=== PATIENT | male | born 1940 | race Caucasian/White ===

== ENCOUNTER 2017-08-24 12:13 | Inpatient (IN) | payer OTHER, BC ==
--- OUTSIDE RECORDS SUMMARY | 2017-08-24 12:15 | XMS REPORT ---
:1940 [facility] [address] [place] [address] Dr. Bush. [address] [place] [id number] Care Team Providers Name Role Phone DR ALEXANDRA KOROMA Unavailable Unavailable Problems This patient has no known problems. Allergies, Adverse Reactions, Alerts This patient has no known allergies or adverse reactions. Medications This patient has no known medications. Results Test Description Test Time Test Comments Text Results Atomic Results Result Comments CARDIAC PROFILE 2017-01-19 10:03:00 Test Item Value Reference Range Comments TROPONIN I (test code=A84) 0.039 ng/mL 0.000-0.045 CKMB (test code=A49) 24.5 ng/mL <=3.6 CPK (test code=32A) 995 IU/L 39-308 CARDIAC [id number] 04:24:00 Test Item Value Reference Range Comments TROPONIN I (test code=A84) 0.058 ng/mL 0.000-0.045 CKMB (test code=A49) 29.7 ng/mL <=3.6 CPK (test code=32A) 1058 IU/L 39-308 BASIC METABOLIC [id number] 03:53:00 Test Item Value Reference Range Comments GLUCOSE (test code=06D) 109 mg/dL 75-100 SODIUM (test code=01A) 137 mmol/L 136-145 POTASSIUM (test code=01B) 3.4 mmol/L 3.6-5.1 CHLORIDE (test code=04A) 103 mmol/L 98-107 CO2 (test code=02A) 25 mmol/L 22-32 ANION GAP (test code=ANG) 12.4 mmol/L BUN (test code=05D) 15 mg/dL 7-18 CREATININE (test code=03E) 0.9 mg/dL 0.7-1.3 BUN/CREA (test code=BCR) 17 12-20 CALCIUM (test code=09D) 8.2 mg/dL 8.3-9.5 CBC (INCLUDES AUTOMATED DIFFERENTIAL)2017-01-19 03:44:00 Test Item Value Reference Range Comments WBC (test code=WBC) 5.6 10\S\3/uL 4.5-11.0 RBC (test code=RBC) 3.89 10\S\6/uL 3.80-5.80 HGB (test code=HBG) 12.1 g/dL 14.0-18.0 HCT (test code=HCT) 35.0 % 35.0-46.0 MCV (test code=MCV) 90.0 fL 80.0-94.0 MCH (test code=MCH) 31.1 pg 27.0-31.0 MCHC (test code=MCHC) 34.6 g/dL 32.0-36.0 RDW (test code=RDW) 11.9 % 11.5-14.5 PLT (test code=PLT) 174 10\S\3/uL 130-400 MPV (test code=MPV) 9.4 fL 9.4-12.4 NEUTROP # (test code=NE#) 3.3 10\S\3/uL 2.0-8.0 LYMPH # (test code=LY#) 1.2 10\S\3/uL 1.2-4.0 MONOCYTE # (test code=MO#) 0.9 10\S\3/uL 0.0-1.1 EOSINOPH # (test code=EO#) 0.1 10\S\3/uL 0.0-0.7 BASOPHIL # (test code=BA#) 0.0 10\S\3/uL 0.0-0.3 IG # (test code=IG#) 0.01 10\S\3/uL 0.00-0.06 NRBC # (test code=NRBC#) 0.00 10\S\3/uL 0.00-0.01 NEUTROPH % (test code=NE%) 58.7 % 35.0-73.0 LYMPH % (test code=LY%) 22.0 % 20.0-55.0 MONO % (test code=MO%) 16.5 % 2.5-10.0 EOSINOPH % (test code=EO%) 2.2 % 0.0-5.0 BASOPHIL % (test code=BA%) 0.4 % 0.0-2.0 IG % (test code=IG%) 0.2 % 0.0-0.8 NRBC% (test code=NRBC%) 0.0 % 0.0-0.2 MANDIFF (test code=MDIFF) NO NO RBC MORPH (test code=RBCMOR) NORMAL CT CERVICAL SPINE W/O [id number] 20:41:24Location:: H1Iqqiztf: Neck painComparison: NoneTechnique: Multiplanar axial, sagittal, and coronal CT images of the cervicalspine were obtained without the use of intravenous contrast in bone and softtissue window settings.Findings:Osseous structures show osteopenia of the regional skeleton without evidence offracture, dislocation or prevertebral soft tissue swelling.Marked disc space narrowing is present at C6-7 with large posterior osteophytespresent.Mild degenerative changes consisting of osteophytes anterolaterally andposteriorly from C3 through C7 are present.Surrounding soft tissues are unremarkable. Scattered atheroscleroticcalcification is present.There is multilevel spinal stenosis secondary to a combination of posteriorspondylitic changes with bilateral neural foramen encroachment secondary tomoderate bilateral facet hypertrophy from C3 to 4 through C7-T1 greatest atC5-C6, C6-7.If radiculopathy is present correlation with MRI may be of further benefit.Impression:1. No evidence of acute osseous or soft tissue abnormality.2. Diffuse degenerative disc disease with associated degenerative changes andmultilevel spinal stenosis and bilateral neural foramen encroachment whichfurther evaluation is recommended.CARDIAC [id number] 20:40:00 Test Item Value Reference Range Comments TROPONIN I (test code=A84) 0.081 ng/mL 0.000-0.045 CKMB (test code=A49) 44.5 ng/mL <=3.6 CPK (test code=32A) 1078 IU/L 39-308 COMPREHENSIVE METABOLIC [id number] 20:35:00 Test Item Value Reference Range Comments GLUCOSE (test code=06D) 103 mg/dL 75-100 SODIUM (test code=01A) 135 mmol/L 136-145 POTASSIUM (test code=01B) 3.4 mmol/L 3.6-5.1 CHLORIDE (test code=04A) 102 mmol/L 98-107 CO2 (test code=02A) 23 mmol/L 22-32 ANION GAP (test code=ANG) 13.4 mmol/L BUN (test code=05D) 17 mg/dL 7-18 CREATININE (test code=03E) 0.9 mg/dL 0.7-1.3 BUN/CREA (test code=BCR) 18 12-20 CALCIUM (test code=09D) 8.9 mg/dL 8.3-9.5 BILI TOTAL (test code=11A) 1.0 mg/dL 0.2-1.0 PROTEIN (test code=07D) 7.0 g/dL 6.4-8.2 ALBUMIN (test code=08D) 3.9 g/dL 3.5-4.8 GLOBULIN (test code=GLB) 3.1 g/dL 1.5-3.8 ALB/GLOB (test code=AGRR) 1.3 1.0-2.6 ALK PHOS (test code=35A) 64 IU/L 42-121 AST (test code=30A) 42 IU/L <=42 ALT (test code=31A) 8 IU/L <=78 CT ABDOMEN AND PELVIS W/O [id number] 20:31:42LOCATION CODE: A1.HISTORY : Low back and right flank painCOMPARISON: NoneTECHNIQUE: Serial axial scans of the abdomen and pelvis were obtained fromabove the diaphragm through the inferior pubic rami without the use of oral orintravenous contrast .FINDINGS: The cardiac silhouette and visualized portions of the pulmonaryparenchyma are normal.Extensive coronary artery atherosclerotic calcification is present.Visualized portions of the liver, spleen, pancreas, and adrenals are normal insize, shape, and electron density without evidence of focal mass lesion.Patient is status post cholecystectomy. No evidence of biliary ductaldilatation is noted.The left kidney shows a large lobulated cyst in the upper pole which appears toarise from the pelvis is difficult to evaluate if this is a duplex collectingsystem with possible obstruction.No evidence of nephrocalcinosis, hydronephrosis or perinephric inflammatorychanges are present.No evidence of retroperitoneal adenopathy or free intra-abdominal fluid ispresent.Degenerative changes of the thoracolumbar spine with extensive atheroscleroticcalcification of anondilated aorta is present.Moderate stool in the colon is present in keeping with constipation.Visualized loops of large and small bowel appear within normal limits withoutevidence of bowel wall thickening.Visualized portions of the pelvis show osseous structures and bowel gas patternare unremarkable.Visualized portions of the bladder and rectum are unremarkable.The prostate is diffusely enlarged.Noevidence of pelvic mass lesion , adenopathy or free fluid is present..IMPRESSION:1. Extensive coronary artery atherosclerotic calcification.2. Large left upper pole renal cyst arising from the renal pelvis for whichfurther evaluation is recommended.3. Status post cholecystectomy.4. Degenerative changesof the thoracolumbar spine with atheroscleroticcalcification of a nondilated aorta. 5. Enlarged prostate.6. Constipation..CT CHEST W/O [id number] 20:25:41LOCATION CODE: A1.HISTORY : chest painCOMPARISON: NoneTECHNIQUE: Serial axial scans of the chest wereobtained from above theclavicles through to the upper pole of the kidneys without the administrationof intravenous contrast in mediastinal and lung window settings.FINDINGS: Cardiac silhouette is within normal limits without evidence ofpericardial effusion.Diffuse coronary artery atherosclerotic calcification is present involving theright and left coronary arteries greatest involving the LAD.Visualized portions of the thoracic aorta are normal without evidence ofaneurysmal dilatation or dissection.No evidence of significant mediastinal or hilar adenopathy is present.Visualized portions of the pulmonary parenchyma show mild bilateralperibronchial cuffing.No definite evidence of infiltrate, pulmonary nodules, pleural effusion orthickening, bullous disease, or bronchiectasis.Mild degenerative changes of the thoracolumbar spine are present.Atherosclerotic calcification of a nondilated aorta is present.The patient is status post cholecystectomy. Large left upper pole left renalcyst is present. No significant axillary adenopathy is present.Visualized portions of the liver, spleen, pancreas, kidneys, and adrenals areunremarkable.IMPRESSION: Extensive coronary artery atherosclerotic calcification forwhich furtherevaluation with stress test or angiography may be of further benefit.2. No other acute cardiopulmonary disease.3. Status post cholecystectomy. 4. Degenerative changes of the thoracolumbar spine with atheroscleroticcalcification of a nondilated aorta.CT HEAD W/O [id number] 20:17:03LOCATION CODE: A1.HISTORY: HeadacheCOMPARISON: NoneTECHNIQUE: Serial axial scans of the brain wereobtained without the use ofintravenous contrast in brain and bone window settings.FINDINGS: The ventricles and subarachnoid spaces are prominent in keeping withage-related atrophy. No evidence of shiftof the midline or mass effect ispresent.There is no evidence of subarachnoid hemorrhage, intracerebral hematoma orextraaxial fluid collections present.Visualized portions of the brain parenchyma show decreased attenuation inperiventricular white matter in keeping with chronic white matter ischemicchange.No other areas of abnormal attenuation are present to suggest mass lesion,acute CVA, or contusion.Osseous structures, surrounding soft tissues , sinuses, and mastoids areunremarkable.IMPRESSION:1. Age-related atrophy.2. Chronic white matter ischemic changes.3. No evidence of acute intracranial pathology.CBC (INCLUDES AUTOMATED DIFFERENTIAL)2017-01-18 20:09:00 Test Item Value Reference Range Comments WBC (test code=WBC) 8.4 10\S\3/uL 4.5-11.0 RBC (test code=RBC) 4.10 10\S\6/uL 3.80-5.80 HGB (test code=HBG) 12.9 g/dL 14.0-18.0 HCT (test code=HCT) 36.5 % 35.0-46.0 MCV (test code=MCV) 89.0 fL 80.0-94.0 MCH (test code=MCH) 31.5 pg 27.0-31.0 MCHC (test code=MCHC) 35.3 g/dL 32.0-36.0 RDW (test code=RDW) 11.9 % 11.5-14.5 PLT (test code=PLT) 195 10\S\3/uL 130-400 MPV (test code=MPV) 8.8 fL 9.4-12.4 NEUTROP # (test code=NE#) 5.7 10\S\3/uL 2.0-8.0 LYMPH # (test code=LY#) 1.6 10\S\3/uL 1.2-4.0 MONOCYTE # (test code=MO#) 1.0 10\S\3/uL 0.0-1.1 EOSINOPH # (test code=EO#) 0.0 10\S\3/uL 0.0-0.7 BASOPHIL # (test code=BA#) 0.0 10\S\3/uL 0.0-0.3 IG # (test code=IG#) 0.02 10\S\3/uL 0.00-0.06 NRBC # (test code=NRBC#) 0.00 10\S\3/uL 0.00-0.01 NEUTROPH % (test code=NE%) 67.3 % 35.0-73.0 LYMPH % (test code=LY%) 19.5 % 20.0-55.0 MONO % (test code=MO%) 12.1 % 2.5-10.0 EOSINOPH % (test code=EO%) 0.4 % 0.0-5.0 BASOPHIL % (test code=BA%) 0.5 % 0.0-2.0 IG % (test code=IG%) 0.2 % 0.0-0.8 NRBC% (test code=NRBC%) 0.0 % 0.0-0.2 MANDIFF (test code=MDIFF) NO NO
[2017-08-24] MEDS ORDERED: NA CHLORIDE 0.9% 500 ML ONE (13:10)
--- NOTE | 2017-08-24 13:16 | RAD REPORT ---
EXAM DESCRIPTION: RAD - Chest Single View - 08/24/2017 1:10 pm CLINICAL HISTORY: Syncope, dehydration, hypotension COMPARISON: June 2011 TECHNIQUE: AP portable chest image was obtained 1306 hours . FINDINGS: Lung volumes are low. This accentuates baseline interstitial pattern. Minimal interstitial edema or infiltrate could be masked in this setting. No focal consolidation. Significant failure or volume overload are not suspected. Trachea is midline. The upper abdominal bowel gas pattern is nonsp ecific. Heart and vasculature are normal. No measurable pleural effusion and no pneumothorax. No leta s bony abnormality seen. No acute aortic findings suspected. IMPRESSION: Shallow inspiration accentuates interstitial markings. This could mask early interstitia l edema or infiltrate. No peripheral mass or consolidation.
[2017-08-24 13:25] LABS: Absolute Monocytes 1.2 K/uL (0.1-1.3); Absolute Neutrophil 6.8 K/uL (1.8-8.0); Basophils % 0.3 % (0-1.3); Eosinophils % 1.6 % (0-4.4); Hematocrit 36.8 % (39.6-49.0); Lymphocytes % 10.7 % (15.3-44.8); MCH 31.1 pg (27.0-35.0); MCV 91.4 fL (80-100); MPV 7.6 fL (7.6-11.3); Monocytes % 13.4 % (3.3-12.3); RBC Red Blood Cell Count 4.03 M/uL (4.33-5.43)
[2017-08-24 13:29] LABS: Potassium 4.2 mEq/L (3.6-5.0)
[2017-08-24 13:40] LABS: Bilirubin Direct 0.2 mg/dL (0-0.2); Bilirubin Total 1.5 mg/dL (0.3-1.2); Protein, Total 6.6 g/dL (6.0-8.3)
--- NOTE | 2017-08-24 13:42 | RAD REPORT ---
EXAM DESCRIPTION: CT - CTHCSPWOC - 08/24/2017 1:23 pm CLINICAL HISTORY: Syncope, head and neck injury COMPARISON: None. TECHNIQUE: Axial 5 mm thick images of the head were obtained. Axial 2 mm thick images of the cervic al spine were obtained with sagittal and coronal reconstruction images generated and reviewed. All CT scans are performed using dose optimization technique as appropriate and may include automated exposure control or mA/KV adjustment according to patient size. FINDINGS: No intracranial hemorrhage, mass, edema or acute intracranial finding. No acute cortical based infarc tion. Moderate atrophy and chronic ischemic changes are present. Arterial and physiologic calcificati ons present. Ventricular size is in proportion to volume loss. No extra-axial fluid collections. Mast oid air cells and paranasal sinuses are clear. No globe or orbit abnormality seen. Cervical body height and alignment are normal. Left lateral tilt of the cervical spine is believed to be a positioning artifact. Disc space narrowing is present at C3-4 and C6-7. No fracture or acute alonzo ny abnormality. Mild right bony foraminal encroachment at C3-4. Mild bilateral foraminal encroachment changes are present at C5-6. Prominent posterior endplate spurring at C6-7 causes central spinal ed nosis to 9 mm. There is also mild left foraminal encroachment. No paraspinal mass or hematoma. IMPRESSION: Moderate atrophy and chronic ischemic change with no acute intracranial finding. Cervical spine degenerative changes are present. There is central spinal stenosis at C6-7 due to prom inent posterior endplate spurring. Multilevel foraminal stenosis changes are present mild in degree. Central canal detail is inherently limited.
[2017-08-24 13:43] LABS: Protime INR 1.19
--- NOTE | 2017-08-24 13:54 | EDPHYS ---
Physician Documentation [facility] Name: Kevin Sandhu Age: 77 yrs Sex: Male : 1940 Arrival Date: 08/24/2017 Time: 12:17 Bed 5 Private MD: Willy Andrade R ED Physician Yunier Espinoza HPI: 08/24 13:39 This 77 yrs old Male presents to ER via Ambulatory with complaints of sha Dehydration. 13:39 weak, cant walk. The patient presents with decreased mental status, trouble sha concentrating. Onset: The symptoms/episode began/occurred 2 day(s) ago. Possible causes: unknown. Associated signs and symptoms: Pertinent positives: confusion, dizziness, gait abnormality, lightheadedness. Current symptoms: In the emergency department the patient's symptoms are unchanged from the initial presentation. Patient's baseline: Neuro: alert and fully oriented. Severity of symptoms: At their worst the symptoms were mild in the emergency department the symptoms are unchanged. Historical: - Allergies: 12:23 No Known Allergies; hj - Home Meds: 12:23 lisinopril 20 mg Oral tab 1 tab once daily [Active]; finasteride 5 mg oral tab 1 tab hj once daily [Active]; memantine 10 mg oral tab 1 tab 2 times per day [Active]; Nuplazid 17 mg oral tab 2 tabs once daily [Active]; tamsulosin 0.4 mg oral cp24 1 cap once daily [Active]; omeprazole 20 mg Oral cpDR 1 cap once daily [Active]; metoprolol tartrate 50 mg Oral tab 1 tab 2 times per day [Active]; carbidopa-levodopa 25-100 mg Oral tab 1 tab 3 times per day [Active]; Zyrtec 10 mg Oral tab 1 tab once daily [Active]; aspirin 81 mg Oral TbEC 1 tab once daily [Active]; - PMHx: 12:23 Parkinsons; prostate cancer; GERD; hj - PSHx: 12:23 colon; hj - Immunization history:: Adult Immunizations up to date. - Social history:: Smoking status: Patient/guardian denies using tobacco. - Family history:: not pertinent. ROS: 13:39 Constitutional: Negative for fever, chills, and weight loss, Eyes: Negative for injury, sha pain, redness, and discharge, ENT: Negative for injury, pain, and discharge, Neck: Negative for injury, pain, and swelling, Cardiovascular: Negative for chest pain, palpitations, and edema, Respiratory: Negative for shortness of breath, cough, wheezing, and pleuritic chest pain, Abdomen/GI: Negative for abdominal pain, nausea, vomiting, diarrhea, and constipation, Back: Negative for injury and pain, : Negative for injury, bleeding, discharge, and swelling, MS/Extremity: Negative for injury and deformity, Skin: Negative for injury, rash, and discoloration, Psych: Negative for depression, anxiety, suicide ideation, homicidal ideation, and hallucinations, Allergy/Immunology: Negative for hives, rash, and allergies, Endocrine: Negative for neck swelling, polydipsia, polyuria, polyphagia, and marked weight changes, Hematologic/Lymphatic: Negative for swollen nodes, abnormal bleeding, and unusual bruising. 13:39 Neuro: Positive for altered mental status, weakness. Exam: 13:39 Constitutional: This is a well developed, well nourished patient who is awake, alert, sha and in no acute distress. Head/Face: Normocephalic, atraumatic. Eyes: Pupils equal round and reactive to light, extra-ocular motions intact. Lids and lashes normal. Conjunctiva and sclera are non-icteric and not injected. Cornea within normal limits. Periorbital areas with no swelling, redness, or edema. ENT: Nares patent. No nasal discharge, no septal abnormalities noted. Tympanic membranes are normal and external auditory canals are clear. Oropharynx with no redness, swelling, or masses, exudates, or evidence of obstruction, uvula midline. Mucous membranes moist. Neck: Trachea midline, no thyromegaly or masses palpated, and no cervical lymphadenopathy. Supple, full range of motion without nuchal rigidity, or vertebral point tenderness. No Meningismus. Chest/axilla: Normal chest wall appearance and motion. Nontender with no deformity. No lesions are appreciated. Cardiovascular: Regular rate and rhythm with a normal S1 and S2. No gallops, murmurs, or rubs. Normal PMI, no JVD. No pulse deficits. Respiratory: Lungs have equal breath sounds bilaterally, clear to auscultation and percussion. No rales, rhonchi or wheezes noted. No increased work of breathing, no retractions or nasal flaring. Abdomen/GI: Soft, non-tender, with normal bowel sounds. No distension or tympany. No guarding or rebound. No evidence of tenderness throughout. Back: No spinal tenderness. No costovertebral tenderness. Full range of motion. Male : Normal genitalia with no discharge or lesions. Skin: Warm, dry with normal turgor. Normal color with no rashes, no lesions, and no evidence of cellulitis. Psych: Awake, alert, with orientation to person, place and time. Behavior, mood, and affect are within normal limits. 13:39 Musculoskeletal/extremity: Extremities: decreased ROM. Vital Signs: 12:24 Weight 68.49 kg; Height 5 ft. 10 in. (177.80 cm); hj 12:35 BP 120 / 76; Pulse 58; Resp 16; Pulse Ox 98% on R/A; iw 13:05 BP 112 / 65; Pulse 61; Resp 15; Pulse Ox 98% on R/A; ae1 13:05 Temp 98.5(O); ae1 13:36 BP 126 / 74; Pulse 64; Resp 18; Pulse Ox 100% ; ag 14:19 BP 142 / 71; Pulse 60; Resp 16; Pulse Ox 100% on R/A; ae1 12:24 Body Mass Index 21.67 (68.49 kg, 177.80 cm) hj MDM: 13:25 Patient medically screened. [facility] 13:39 Data reviewed: vital signs, nurses notes, lab test result(s), EKG, radiologic studies, [facility] CT scan, plain films. 08/24 12:33 Order name: Basic Metabolic Panel [facility] 08/24 12:33 Order name: BNP [facility] 08/24 12:33 Order name: CBC with Diff [facility] 08/24 12:33 Order name: CPK [facility] 08/24 12:33 Order name: LFT's [facility] 08/24 12:33 Order name: Magnesium [facility] 08/24 12:33 Order name: PT-INR [facility] 08/24 12:33 Order name: Ptt, Activated [facility] 08/24 12:33 Order name: Troponin (emerg Dept Use Only) [facility] 08/24 13:28 Order name: CBC with Automated Diff; Complete Time: 13:42 EDMS 08/24 13:30 Order name: Basic Metabolic Panel; Complete Time: 14:51 EDMS 08/24 13:36 Order name: Troponin (Emerg Dept Use Only); Complete Time: 13:42 EDMS 08/24 13:38 Order name: Urine Culture [facility] 08/24 13:39 Order name: Blood Culture Adult (2) [facility] 08/24 12:33 Order name: XRAY Chest (1 view) [facility] 08/24 12:33 Order name: EKG; Complete Time: 12:35 [facility] 08/24 12:34 Order name: CT Head C Spine [facility] 08/24 13:17 Order name: RAD; Complete Time: 13:42 EDMS 08/24 13:38 Order name: Pelvis XRAY [facility] 08/24 13:40 Order name: Liver (Hepatic) Function; Complete Time: 14:51 EDNV 08/24 13:40 Order name: Magnesium; Complete Time: 14:51 EDNV 08/24 13:42 Order name: CT; Complete Time: 14:02 EDNV 08/24 13:44 Order name: Protime (+INR); Complete Time: 14:02 EDNV 08/24 13:44 Order name: PTT, Activated Partial Thromb; Complete Time: 14:02 EDNV 08/24 13:59 Order name: RAD; Complete Time: 14:02 EDNV 08/24 14:22 Order name: Creatine Phosphokinase; Complete Time: 14:51 EDNV 08/24 14:45 Order name: BNP B-Type Natriuretic Peptide; Complete Time: 14:51 EDNV 08/24 14:50 Order name: Echo w/ Doppler [facility] 08/24 12:33 Order name: Cardiac monitoring; Complete Time: 13:04 [facility] 08/24 12:33 Order name: EKG - Nurse/Tech; Complete Time: 13:04 [facility] 08/24 12:33 Order name: IV Saline Lock; Complete Time: 13:04 [facility] 08/24 12:33 Order name: Labs collected and sent; Complete Time: 13:04 [facility] 08/24 12:33 Order name: O2 Per Protocol; Complete Time: 13:05 [facility] 08/24 12:33 Order name: O2 Sat Monitoring; Complete Time: 13:05 [facility] 08/24 12:34 Order name: Urine Dipstick-Ancillary (obtain specimen); Complete Time: 14:36 kdr Administered Medications: 13:05 Drug: NS 0.9% 500 ml Route: IV; Rate: bolus; Site: right antecubital; ae1 14:20 Follow up: IV Status: Completed infusion ae1 14:35 Drug: Rocephin - (cefTRIAXone) 1 grams Route: IVPB; Infused Over: 30 mins; Site: right ae1 antecubital; 14:44 Follow up: IV Status: Completed infusion ae1 Disposition: 08/24/17 13:53 Hospitalization ordered by Willy Andrade for Inpatient Admission. Preliminary diagnosis are Weakness, Parkinson's disease, Volume depletion, Fall due to bumping against object, Hypo-osmolality and hyponatremia, Rhabdomyolysis. - Bed requested for Telemetry/MedSurg (Inpatient). - Status is Inpatient Admission. ae1 - Condition is Fair. - Problem is new. - Symptoms have improved. UTI on Admission? No Signatures: Dispatcher [employer] EDYunier Rothman MD MD cha Rittger, Kevin, MD MD kdr Solis, Maria ms Joaquin, Henry, RN RN Zachery Jraa RN RN ae1
--- NOTE | 2017-08-24 13:54 | ER ---
Nurse's Notes [facility] Name: Kevin Sandhu Age: 77 yrs Sex: Male : 1940 Arrival Date: 08/24/2017 Time: 12:17 Bed 5 Private MD: Willy Andrade R Diagnosis: Weakness;Parkinson's disease;Volume depletion;Fall due to bumping against object;Hypo-osmolality and hyponatremia;Rhabdomyolysis Presentation: 08/24 12:19 Presenting complaint: Child states: went to Dr. Roger for check up, for Parkinson's hj follow up; was sent here for dehydration, low BP, and unable to stand up;. Transition of care: patient was received from another setting of care (ambulatory primary care physician practice), Dr. Roger;. Onset of symptoms was August 24, 2017. Care prior to arrival: None. 12:19 Method Of Arrival: Ambulatory hj 12:19 Acuity: ERICA 3 hj Triage Assessment: 12:23 General: Appears in no apparent distress. uncomfortable, Behavior is calm, cooperative, hj appropriate for age. Historical: - Allergies: 12:23 No Known Allergies; hj - Home Meds: 12:23 lisinopril 20 mg Oral tab 1 tab once daily [Active]; finasteride 5 mg oral tab 1 tab hj once daily [Active]; memantine 10 mg oral tab 1 tab 2 times per day [Active]; Nuplazid 17 mg oral tab 2 tabs once daily [Active]; tamsulosin 0.4 mg oral cp24 1 cap once daily [Active]; omeprazole 20 mg Oral cpDR 1 cap once daily [Active]; metoprolol tartrate 50 mg Oral tab 1 tab 2 times per day [Active]; carbidopa-levodopa 25-100 mg Oral tab 1 tab 3 times per day [Active]; Zyrtec 10 mg Oral tab 1 tab once daily [Active]; aspirin 81 mg Oral TbEC 1 tab once daily [Active]; - PMHx: 12:23 Parkinsons; prostate cancer; GERD; hj - PSHx: 12:23 colon; hj - Immunization history:: Adult Immunizations up to date. - Social history:: Smoking status: Patient/guardian denies using tobacco. - Family history:: not pertinent. Screenin:14 Abuse screen: Denies threats or abuse. Nutritional screening: No deficits noted. ae1 Tuberculosis screening: No symptoms or risk factors identified. Fall Risk. Assessment: 13:14 General: Appears slender, Behavior is cooperative, quiet, Patient appears drowsy, ae1 awakens to loud verbal stimuli. . Pain: Denies pain. Neuro: Level of Consciousness is obeys commands, lethargic, Oriented to person. Cardiovascular: Heart tones S1 S2 present Patient's skin is warm and dry. Rhythm is sinus bradycardia. Respiratory: Airway is patent Respiratory effort is even, unlabored, Respiratory pattern is regular, symmetrical, Breath sounds are diminished bilaterally. GI: No signs and/or symptoms were reported involving the gastrointestinal system. Abdomen is flat, non-distended. : No signs and/or symptoms were reported regarding the genitourinary system. EENT: wears glasses. . Derm: Skin is pale. Musculoskeletal: Reports generalized weakness that increased over the past week. 14:30 Reassessment: Patient appears in no apparent distress at this time. No changes from ae1 previously documented assessment. 2nd set of blood cultures sent to lab. 14:36 Reassessment: Report called rj Miller nurse. Registration notified, that report ae1 has been called. Vital Signs: 12:24 Weight 68.49 kg; Height 5 ft. 10 in. (177.80 cm); hj 12:35 BP 120 / 76; Pulse 58; Resp 16; Pulse Ox 98% on R/A; iw 13:05 BP 112 / 65; Pulse 61; Resp 15; Pulse Ox 98% on R/A; ae1 13:05 Temp 98.5(O); ae1 13:36 BP 126 / 74; Pulse 64; Resp 18; Pulse Ox 100% ; ag 14:19 BP 142 / 71; Pulse 60; Resp 16; Pulse Ox 100% on R/A; ae1 12:24 Body Mass Index 21.67 (68.49 kg, 177.80 cm) ED Course: 12:17 Patient arrived in ED. mr 12:18 Willy Andrade MD is Private Physician. mr 12:21 Triage completed. hj 12:21 Ran Crawford MD is Attending Physician. kdr 12:24 Arm band placed on left wrist. hj 12:50 Zachery Jara RN is Primary Nurse. ae1 13:11 Placed in gown. Bed in low position. Call light in reach. Side rails up X2. Adult w/ ae1 patient. air sampling and monitoring on. Pulse ox on. NIBP on. 13:12 Inserted saline lock: 20 gauge in right antecubital area, using aseptic technique. ae1 Blood collected. 13:25 Attending Physician role handed off by Ran Crawford MD cha 13:25 Yunier Espinoza MD is Attending Physician. [facility] 13:43 Willy Andrade MD is Hospitalizing Provider. [facility] 13:50 X-ray completed. Portable x-ray completed in exam room. Patient tolerated procedure sw well. 14:17 Straight cath inserted, using sterile technique, 16 Fr. Specimen obtained. Returned ae1 shaina urine. Patient tolerated well. By CRISTOBAL Ji TECH. 14:44 No provider procedures requiring assistance completed. Patient admitted, IV remains in ae1 place. Administered Medications: 13:05 Drug: NS 0.9% 500 ml Route: IV; Rate: bolus; Site: right antecubital; ae1 14:20 Follow up: IV Status: Completed infusion ae1 14:35 Drug: Rocephin - (cefTRIAXone) 1 grams Route: IVPB; Infused Over: 30 mins; Site: right ae1 antecubital; 14:44 Follow up: IV Status: Completed infusion ae1 Outcome: 13:53 Decision to Hospitalize by Provider. [facility] 14:44 Admitted to Med/surg accompanied by tech, family with patient, via stretcher, room 215, ae1 with chart, Report called to Angela receiving nurse. 14:44 Condition: stable 14:44 Discharge instructions given to family, Instructed on the need for admit, Demonstrated understanding of instructions. 14:56 Patient left the ED. ae1 Signatures: Yunier Espinoza MD MD cha Rittger, Kevin, MD MD kdr Rivera, Maria mr Williams, Irene, RN Margy Vidal Shannon sw Joaquin, Henry, RN RN hj Elliott, Andrea, RN RN ae1
[2017-08-24] MEDS ORDERED: ACETAMINOPHEN 500 MG TAB PO PRN (13:58)
[2017-08-24] MEDS ORDERED: ONDANSETRON 4 MG/2 ML VIAL IV PRN (13:58)
--- NOTE | 2017-08-24 13:59 | RAD REPORT ---
EXAM DESCRIPTION: RAD - Pelvis - 08/24/2017 1:53 pm CLINICAL HISTORY: Syncope, fall, dehydration, hypotension COMPARISON: None. TECHNIQUE: AP imaging of the pelvis was obtained. FINDINGS: No fracture or dislocation of either proximal femur. No fracture of the bony pelvis seen. Lower lumbar degenerative changes are present. Pubic symphysis and SI joint degenerative changes mini mal. IMPRESSION: Pelvis exam shows no fracture or other significant finding.
[2017-08-24] MEDS ORDERED: LIDOCAINE VISCOUS 2% SOLN 15 ML UDC ONE (14:28)
[2017-08-24] MEDS ORDERED: CEFTRIAXONE/SWI 1gm 1 GM/10 ML SYR ONE (14:49)
[2017-08-24 15:15] VITALS: BMI 21.8
[2017-08-24] MEDS: NA CHLORIDE 0.9% 1,000 ML IV SCH (15:23)
[2017-08-24] MEDS ORDERED: PNEUMOCOCCAL VACCINE 0.5 ML IMVAC ONE (16:00)
--- NOTE | 2017-08-24 16:48 | ECHO ---
HEIGHT: 5 ft 10 in WEIGHT: 152 lb 0 oz DATE OF STUDY: 08/24/[address]: Yunier Espinoza MD 2-DIMENSIONAL: YES M.MODE: YES DOPPLER: YES COLOR FLOW: YES TDS: YES PORTABLE: NO DEFINITY: NO BUBBLE STUDY: NO DIAGNOSIS: WEAK, SYNCOPE CARDIAC HISTORY: CATHERIZATION: NO SURGERY: NO PROSTHETIC VALVE: NO PACEMAKER: NO MEASUREMENTS (cm) DIASTOLIC (NORMALS) SYSTOLIC (NORMALS) IVSd (0.6-1.2) LA Diam (1.9-4.0) LVEF 60-69% LVIDd (3.5-5.7) LVIDs (2.0-3.5) %FS % LVPWd (0.6-1.2) Ao Diam 2.4 (2.0-3.7) 2 DIMENSIONAL ASSESSMENT: RIGHT ATRIUM: NORMAL LEFT ATRIUM: NORMAL RIGHT VENTRICLE: NORMAL LEFT VENTRICLE: NORMAL TRICUSPID VALVE: NORMAL MITRAL VALVE: NORMAL PULMONIC VALVE: NORMAL AORTIC VALVE: NORMAL PERICARDIAL EFFUSION: NONE AORTIC ROOT: NORMAL LEFT VENTRICULAR WALL MOTION: NORMAL DOPPLER/COLOR FLOW: NORMAL COMMENTS: NORMAL 2D ECHOCARDIOGRAM WITH DOPPLER. TECHNOLOGIST: Bill SMALLWOOD
--- NOTE | 2017-08-24 16:48 | EKG ---
Test Date: 2017-08-24 Test Time: 12:53:54 Aircraft Air Conditioning Mechanic: COLTON MEASUREMENT RESULTS: Intervals: Rate: 57 [place]: 132 QRSD: 80 QT: 420 QTc: 408 [place]: P: -6 [place]: 132 QRS: 0 T: -10 INTERPRETIVE STATEMENTS: Sinus bradycardia Otherwise normal ECG Compared to ECG 06/06/2011 03:33:54 Sinus rhythm no longer present ST (T wave) deviation no longer present Electronically Signed On 08-24-17 16:48:14 CDT by John Hardy
[2017-08-24] MEDS: MEMANTINE HCL 10 MG TABLET PO SCH (20:30)
[2017-08-24] MEDS: TAMSULOSIN 0.4 MG SR CAP PO SCH (20:30)
[2017-08-24] MEDS: METOPROLOL TAR 50 MG TAB PO SCH (20:30)
[2017-08-24] MEDS: PIMAVANSERIN TARTRATE 17 MG PO SCH (20:31)
[2017-08-24] MEDS: FINASTERIDE 5 MG TAB PO SCH (20:31)
[2017-08-25] MEDS: NA CHLORIDE 0.9% 1,000 ML IV SCH ×3 (02:40→20:40)
[2017-08-25 05:27] LABS: Absolute Lymphocytes (CBC) 1.1 K/uL (0.7-4.9); Absolute Monocytes 0.9 K/uL (0.1-1.3); Absolute Neutrophil 4.5 K/uL (1.8-8.0); Basophils % 0.4 % (0-1.3); Eosinophils % 4.6 % (0-4.4); Hematocrit 35.6 % (39.6-49.0); Lymphocytes % 16.3 % (15.3-44.8); MCH 31.1 pg (27.0-35.0); MPV 7.5 fL (7.6-11.3); Monocytes % 13.5 % (3.3-12.3); RBC Red Blood Cell Count 3.91 M/uL (4.33-5.43)
[2017-08-25 05:46] LABS: Potassium 4.7 mEq/L (3.6-5.0)
[2017-08-25] MEDS: PANTOPRAZOLE 40MG TABLET PO SCH (06:26)
--- NOTE | 2017-08-25 07:55 | HP ---
Date of Admission: 08/24/2017 Chief Complaint: Hyponatremia, dehydration. History Of Present Illness: A 77-year-old male who is known to have severe Parkinson disease who als o taken to Dr. Roger's office. There, he was found to have profound weakness. The patient was se nt to ER for evaluation. His sodium was 128. The patient is admitted with a diagnosis of hyponatrem ia, dehydration. The patient cannot give any meaningful history as he looks slightly confused. Ther e is no history of seizures. Past Medical History: Positive for hypertension, history of prostate cancer, Alzheimer disease, Park inson disease. Family History: Noncontributory. Personal History: Nonsmoker. Home Medications: Lisinopril, Proscar, memantine, Flomax, omeprazole, carbidopa/levodopa. Review of Systems: There is no history of chest pain or shortness of breath. Physical Examination: General: Revealed a 77-year-old male, slightly confused. There was no evidence of head injury. Neck: Supple. JVD negative. Chest: Clear. Heart: Regular. Abdomen: Soft. Extremities: No edema. Neurologic: Evidence of Parkinson's tremors noted. Laboratory Data: CBC normal. Chem profile: Sodium 128, BUN and creatinine normal. CPK 5706. Assessment: 1.Hyponatremia. 2.Probable poor eating causing volume depletion. 3.Elevation of CPK. 4.Parkinson disease. 5.Prostate cancer. 6.Hypertension. Plan: The patient received IV fluids overnight. His sodium is up to 134. Pending neurological cons ultation. The patient will be continued on the same management. CARINA/LANCE Voice ID: [id number]
[2017-08-25] MEDS: PIMAVANSERIN TARTRATE 17 MG PO SCH ×2 (09:00→20:40)
[2017-08-25] MEDS: ASPIRIN EC 81 MG TAB PO SCH (09:00)
[2017-08-25] MEDS: CETIRIZINE HCL 5 MG TABLET PO SCH (09:11)
[2017-08-25] MEDS: TAMSULOSIN 0.4 MG SR CAP PO SCH ×2 (09:11→20:38)
[2017-08-25] MEDS: METOPROLOL TAR 50 MG TAB PO SCH ×2 (09:11→20:39)
[2017-08-25] MEDS: MEMANTINE HCL 10 MG TABLET PO SCH ×2 (09:11→20:38)
[2017-08-25] MEDS: ASPIRIN 81 MG CHEWABLE TABLET PO SCH (09:11)
[2017-08-25] MEDS: LISINOPRIL 20 MG TAB PO SCH (13:06)
[2017-08-25] MEDS: CARBIDOPA/LEVODOPA 25/100 TAB PO SCH (20:39)
[2017-08-25] MEDS: FINASTERIDE 5 MG TAB PO SCH (20:39)
--- NOTE | 2017-08-25 23:07 | PN ---
Subjective: He is doing well with his physical recovery, actually he is able to rest in bed comforta silvia. He is more interactive, answers appropriately. Moves arms and legs equally well, although he c ontinues to be somewhat stiff. I spoke with his son, who has been giving him his Parkinson's medicat ions as actually prescribed 3 times daily as Sinemet 25/100. The patient himself still needs a signi ficant assistance to transfer to stand and to get towards the bathroom and mobilize. All of his work up has been negative for any injury to the brain or cervical spine. No bleeding. No ischemic or hem orrhagic stroke. His echocardiogram is normal and pelvic x-ray again no fractures and chest show no significant abnormalities along with electrocardiogram only showing some mild bradycardia. He has no new complaints. Objective: Vital Signs: Blood pressure 160/93, pulse 60, respiratory rate 18, temperature 98.5, ox saturation 96% on room air, weight 152 pounds, height 5 feet 10 inches. Neurologic: Mr. Sandhu is resting well. He has indicated he has no focal deficits. He answers appropriately to all questions. Moves arms and legs equally well although with increased tone and so me cogwheeling noted in the upper and lower extremities. He has brisk reflexes upper and lower extre mities. Laboratory Studies: White blood cell count 6.9, hemoglobin 12.2, hematocrit 35.6, platelets 196. IN R 1.19. Chemistries show improved sodium 134, potassium 4.7, chloride 103, carbon dioxide 27, BUN 30 , creatinine 0.89. There is a pending creatine kinase repeat. Assessment: Mr. Sandhu is a 77-year-old patient with Parkinson disease, who is admitted with deh ydration, increased stiffness and some altered mental status which has resolved to baseline. Plan: 1.Continue with Sinemet 25/100 three times daily. 2.The patient is eating well and the intake of fluids was encouraged. This was discussed with the lupe mckay's son and caregiver, who was at the bedside along with the patient. He will be observed overn ight and may be good to go home in the morning. The patient should have physical therapy done after discharge, perhaps a 6 week block. Also, continue on all medications for comorbid conditions as sean hilary by Dr. Andrade and this was communicated with Dr. Andrade as well. He may follow up with [facility] 1 month after discharge. ROSSY Voice ID: [id number] Report ID: [id number]
[2017-08-26] MEDS: PANTOPRAZOLE 40MG TABLET PO SCH (05:41)
[2017-08-26] MEDS: NA CHLORIDE 0.9% 1,000 ML IV SCH (05:43)
[2017-08-26] MEDS: ASPIRIN EC 81 MG TAB PO SCH (09:00)
[2017-08-26] MEDS: PIMAVANSERIN TARTRATE 17 MG PO SCH (09:00)
[2017-08-26] MEDS: ASPIRIN 81 MG CHEWABLE TABLET PO SCH (09:23)
[2017-08-26] MEDS: MEMANTINE HCL 10 MG TABLET PO SCH (09:24)
[2017-08-26] MEDS: TAMSULOSIN 0.4 MG SR CAP PO SCH (09:24)
[2017-08-26] MEDS: METOPROLOL TAR 50 MG TAB PO SCH (09:24)
[2017-08-26] MEDS: CETIRIZINE HCL 5 MG TABLET PO SCH (09:25)
[2017-08-26] MEDS: CARBIDOPA/LEVODOPA 25/100 TAB PO SCH (09:25)
[2017-08-26 11:05] VITALS: O2SAT 97
[2017-08-26] MEDS: LISINOPRIL 20 MG TAB PO SCH (12:00)
[2017-08-26 14:44] VITALS: BP 116/62; TEMP 98.4
--- NOTE | 2017-08-28 09:04 | CON ---
Reason For Consultation: Altered mental status. History Of Present Illness: Mr. 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 The patient's family actually brought him into clinic earlier today. His son and daughter stated that he did fairly well until Monday when after going to [employer] and back home later on, he was found on the floor, poorly responsive. He did manage to get up and was able to ambulate, for which he actually used a walker. He did fairly well. On Monday which is earlier this week, he was able to go to the mall and walk 2 [address] the [address] with his walker. On Monday, he had another fall and he began to ambulate much less and than had significant difficulty to standing and maintaining his balance. When I saw him in clinic, he was much like that in wheelchair, stooped forward, would not extend the legs. He did lift the arms up equally well. There was the tremor associated with Parkinson's. The patient had some grunting and to verbal stimulation. His blood pressure was mildly low with systolic of 96/59, pulse was 59. He was sent directly to our emergency room to rule out any brain injury such as subdural or cord injury or potentially even fractures in his extremities from falls. Also, it will be evaluated for dehydration and potential infection. At the emergency room, blood work revealed white blood cell count normal at 9.2, hemoglobin mildly low at 12.5, hematocrit 36.8, platelets were 222. INR normal at 1.19. Chemistries revealed a mildly low sodium 128, potassium is 4.2, chloride 95, BUN was 20, creatinine 1.24 consistent with chronic dehydration. Creatine kinase elevated to 5706, possibly related to falling and injury along with his Parkinson disease and continuous muscle contraction. His AST was mildly elevated to 153. Head CT along with cervical spine CT scan showed moderate atrophy and chronic ischemic changes. There is cervical spine degeneration with central spinal stenosis noted at C6-C7 due to prominent posterior endplate spurring. Stenosis was down to 9 mm at that level. Also, there were multilevel foraminal stenosis changes present, although to a mild degree. He did have an echocardiogram that showed normal ejection fraction of 60-69% and was normal study. Pelvic x-ray revealed no fractures or acute findings with his hip. His electrocardiogram showed a sinus bradycardia at 57, otherwise was a normal study and his chest x-ray showed shallow inspiration with accentuated interstitial markings and it was noted there is no mass, early interstitial edema or infiltrates. There was no peripheral mass or consolidation identified. He was given IV fluids in the emergency room and Rocephin for potential urinary tract infection. He admitted to the floor with aspirin 81 mg daily and Zofran. He will be evaluated for his ability to swallow and may be restarted on his Parkinson's medications. Past Medical History: Significant for Parkinson disease, hypertension, and cancer. Surgical History: Colon resection 2006, gallbladder removal. Medications: Namenda 10 mg twice daily, Sinemet 25/100 one tablet 3 times daily , amlodipine 5 mg daily. Flomax 0.4 mg daily. Family History: Noncontributory. Social History: The patient is , retired. In the past, did drink 2 cups of coffee per day. Allergies: PENICILLIN. Review of Systems: The patient is not able to give a full review of systems at this point. He indicated no recent fevers, chills, No nausea or vomiting. No recent myalgias or arthralgias. No focal deficits. Physical Examination: Vital Signs: Blood pressure 139/75, pulse 60, respiratory rate 17, temperature 97.8, ox saturation 98% on room air. Weight 150 pounds, height 5 feet 10 inches. General: Mr. Sandhu is resting comfortably. He is in no acute distress. He appears normocephalic and atraumatic. Sclera appears anicteric. Oropharynx appears dry. Extremities: Show no significant edema, cyanosis, or clubbing. Neurological: He is somewhat poorly responsive, but with stimulation, verbal and tactile he responded appropriately. His cranial nerve examination revel a masklike face with decreased excursions of the nasolabial fold. Extremities: Show increased tone with cogwheeling noted. Passive movement of the arms and legs. He does have decreased reflexes in the upper and lower extremities. He does have a tremor noted in upper and lower extremities. Unable to assess gait. Assessment: Mr. Sandhu is a 77-year-old patient with Parkinson disease with dementia and psychosis, who comes in with altered mental status after a fall. His head CT scan shows no evidence of injury, no bleeding, no fracture. He does have a mildly elevated creatine kinase, mildly low sodium of 128. The patient has the appearance of someone off of his Parkinson's medications. Plan: The patient should be evaluated for his ability to swallow safely and may introduce Dobhoff tube if needed for his medications and nutrition. The patient and his family not want him to have a PEG tube. At this point, the patient's family will discuss with him changing his code status to do not resuscitate and consider potential hospice placement. Continue with rehydration and supportive care. Restart carbidopa/levadopa as scheduled. ZAYRA/LANCE Voice ID: [id number] Report ID: [id number] LULU
--- NOTE | 2017-09-25 04:54 | DS ---
Date of Discharge: 08/26/2017 Final Diagnoses: 1.Dehydration. 2.Hyponatremia. 3.Poor oral intake. 4.Parkinson disease. 5.Prostate cancer. 6.Hypertension, inactive. Hospital Course: This patient was taken to the OR at the advice of Dr. Roger because of low blood pressure. The patient had evaluation done in the emergency room. This showed hyponatremia with a s odium of 128. He also had hypotension. The patient received IV fluids in the form of normal saline. The patient's sodium returned to 134. The patient had no further neurological issues at this point . The patient was discharged to the care of family. The importance of adequate nutrition and fluid intake was stressed with the family. The patient was taken off hypertensive medications and he was a dvised to follow up in the office. Laboratory: Please refer to the chart. CARINA/LANCE Voice ID: [id number] Report ID: [id number]
== END 2017-08-26 14:10 | disposition home or self-care (01) | DRG 641 ==
LOC: ER 12:13 → ERHOLD 13:54 → 2ND 14:38
PROVIDERS: ADMIT Internal Medicine; ATTEND Internal Medicine
DX: E87.1 Hypo-osmolality and hyponatremia (principal); E86.0 Dehydration; I10 Essential (primary) hypertension; G30.9 Alzheimer's disease, unspecified; F02.80 Dementia in other diseases classified elsewhere, unspecified severity, without behavioral disturbance, psychotic disturbance, mood disturbance, and anxiety; G20 Parkinson's disease
CPT/HCPCS: 36415; 51702; 70450; 71045; 72125; 72170; 80048; 80076; 82550; 83735; 83880; 84484; 85025; 85610; 85730; 87040; 87086; 87088; 93005; 93306; 96361; 96374; 99285; J0696; J7030

== ENCOUNTER 2017-09-05 10:52 | Emergency (ER) | payer OTHER, BC ==
--- OUTSIDE RECORDS SUMMARY | 2017-09-05 10:54 | XMS REPORT ---
:1940 [facility] Address [address] [place] [address] Dr. Zarco [address] [place] [id number] Care Team Providers Name Role Phone DR [...] CPK (test code=32A) 995 IU/L 39-308 CARDIAC [id number] 04:24:00 Test Item Value Reference Range Comments TROPONIN I (test code=A84) 0.058 ng/mL 0.000-0.045 CKMB (test code=A49) 29.7 ng/mL <=3.6 CPK (test code=32A) 1058 IU/L 39-308 BASIC METABOLIC [id number] 03:53:00 Test Item Value Reference Range Comments [...] (test code=RBCMOR) NORMAL CT CERVICAL SPINE W/O [id number] 20:41:24Location:: [id number]: Neck painComparison: NoneTechnique: Multiplanar axial, sagittal, and [...] neural foramen encroachment whichfurther evaluation is recommended.CARDIAC [id number] 20:40:00 Test Item Value Reference Range Comments TROPONIN I (test code=A84) 0.081 ng/mL 0.000-0.045 CKMB (test code=A49) 44.5 ng/mL <=3.6 CPK (test code=32A) 1078 IU/L 39-308 COMPREHENSIVE METABOLIC [id number] 20:35:00 Test Item Value Reference Range Comments [...] IU/L <=78 CT ABDOMEN AND PELVIS W/O [id number] 20:31:42LOCATION CODE: A1.HISTORY : Low back and [...] aorta. 5. Enlarged prostate.6. Constipation..CT CHEST W/O [id number] 20:25:41LOCATION CODE: A1.HISTORY : chest painCOMPARISON: NoneTECHNIQUE: [...] atheroscleroticcalcification of a nondilated aorta.CT HEAD W/O [id number] 20:17:03LOCATION CODE: A1.HISTORY: HeadacheCOMPARISON: NoneTECHNIQUE: Serial [...]
[2017-09-05] MEDS ORDERED: NA CHLORIDE 0.9% 1,000 ML ONE (12:31)
[2017-09-05 12:52] LABS: Potassium 4.9 mEq/L (3.6-5.0)
[2017-09-05 12:53] LABS: Absolute Lymphocytes (CBC) 1.6 K/uL (0.7-4.9); Absolute Monocytes 1.3 K/uL (0.1-1.3); Absolute Neutrophil 7.7 K/uL (1.8-8.0); Basophils % 0.3 % (0-1.3); Eosinophils % 0.9 % (0-4.4); Hematocrit 35.4 % (39.6-49.0); Lymphocytes % 15.1 % (15.3-44.8); MCH 30.2 pg (27.0-35.0); MCV 90.8 fL (80-100); MPV 7.1 fL (7.6-11.3); Monocytes % 12.3 % (3.3-12.3)
--- NOTE | 2017-09-05 12:57 | RAD REPORT ---
EXAM DESCRIPTION: RAD - Chest Pa And Lat (2 Views) - 09/05/2017 12:49 pm CLINICAL HISTORY: Weakness, shortness of breath, altered mental status COMPARISON: August 24June 2011 TECHNIQUE: PA and lateral views of the chest were obtained. FINDINGS: The lungs are underinflated compared to prior imaging. No large consolidation or mass. Pool g markings are accentuated due to the shallow inspiration. However, this pattern is asymmetrically pr ominent in the posterior left base. Early left lung base pneumonia is suspected. Acute failure or vol ume overload not suspected. Trachea is midline. No pleural effusion or pneumothorax seen. No acute bony finding noted. No aortic abnormality. IMPRESSION: Suspected early posterior left lung base pneumonia superimposed on chronic interstitial lung disease.
--- NOTE | 2017-09-05 14:28 | EDPHYS ---
Physician Documentation [facility] Name: Kevin Sandhu Age: 77 yrs Sex: Male : 1940 Arrival Date: 09/05/2017 Time: 10:54 Bed 16 Private MD: Willy Adnrade R ED Physician Anthony Garcia HPI: 09/05 14:20 This 77 yrs old Male presents to ER via Wheelchair with complaints of Blood gs Pressure Problem. 14:20 The patient presents to the emergency department with weakness of the entire body, gs generalized weakness. Onset: The symptoms/episode began/occurred today. Associated signs and symptoms: Pertinent positives: cough. Severity of symptoms: At their worst the symptoms were moderate in the emergency department the symptoms are unchanged. Patient's baseline: feels weak otherwise at baseline. Current symptoms: weak, bp little low is orthoststic. Historical: - Allergies: 11:05 No Known Allergies; aj - Home Meds: 11:05 aspirin 81 mg Oral TbEC 1 tab once daily [Active]; finasteride 5 mg Oral tab 1 tab once aj daily [Active]; carbidopa-levodopa 25-100 mg Oral tab 1 tab 3 times per day [Active]; lisinopril 20 mg Oral tab 1 tab once daily [Active]; memantine 10 mg Oral tab 1 tab 2 times per day [Active]; metoprolol tartrate 50 mg Oral tab 1 tab 2 times per day [Active]; Nuplazid 17 mg Oral tab 2 tabs once daily [Active]; omeprazole 20 mg Oral cpDR 1 cap once daily [Active]; tamsulosin 0.4 mg Oral cp24 1 cap once daily [Active]; Zyrtec 10 mg Oral tab 1 tab once daily [Active]; - PMHx: 11:05 Parkinsons; Prostate Cancer; GERD; aj - PSHx: 11:05 colon; aj - Immunization history:: Adult Immunizations up to date. - Social history:: Smoking status: Patient/guardian denies using tobacco. ROS: 14:20 All other systems are negative. gs Exam: 14:20 Head/Face: Normocephalic, atraumatic. Eyes: Pupils equal round and reactive to light, gs extra-ocular motions intact. Lids and lashes normal. Conjunctiva and sclera are non-icteric and not injected. Cornea within normal limits. Periorbital areas with no swelling, redness, or edema. ENT: Nares patent. No nasal discharge, no septal abnormalities noted. Tympanic membranes are normal and external auditory canals are clear. Oropharynx with no redness, swelling, or masses, exudates, or evidence of obstruction, uvula midline. Mucous membranes moist. Neck: Trachea midline, no thyromegaly or masses palpated, and no cervical lymphadenopathy. Supple, full range of motion without nuchal rigidity, or vertebral point tenderness. No Meningismus. Chest/axilla: Normal chest wall appearance and motion. Nontender with no deformity. No lesions are appreciated. Cardiovascular: Regular rate and rhythm with a normal S1 and S2. No gallops, murmurs, or rubs. Normal PMI, no JVD. No pulse deficits. Abdomen/GI: Soft, non-tender, with normal bowel sounds. No distension or tympany. No guarding or rebound. No evidence of tenderness throughout. Back: No spinal tenderness. No costovertebral tenderness. Full range of motion. Skin: Warm, dry with normal turgor. Normal color with no rashes, no lesions, and no evidence of cellulitis. MS/ Extremity: Pulses equal, no cyanosis. Neurovascular intact. Full, normal range of motion. 14:20 Constitutional: The patient appears alert, awake. 14:20 Respiratory: the patient does not display signs of respiratory distress, Respirations: normal, Breath sounds: decreased breath sounds, that are mild, are located in both bases. 14:20 Neuro: Orientation: no acute changes, Cranial nerves: CN II- XII are normal as tested, Motor: moves all fours, strength is 5/5 in all extremities, Sensation: no obvious gross deficits, no acute changes, Gait: shuffling. Vital Signs: 11:05 BP 109 / 69; Pulse 62; Resp 20; Temp 97.5; Pulse Ox 100% on R/A; Weight 68.49 kg; aj Height 5 ft. 10 in. (177.80 cm); Pain 0/10; 11:23 BP 112 / 64 Supine; Pulse 56; Pulse Ox 99% on R/A; rb1 11:25 BP 97 / 65 Sitting; Pulse 58; Pulse Ox 99% on R/A; rb1 11:27 BP 87 / 55; Pulse 66; Pulse Ox 97% on R/A; rb1 12:00 BP 93 / 61; Pulse 57; Resp 19; Pulse Ox 99% on R/A; rb1 12:30 BP 125 / 69; Pulse 59; Resp 18; Pulse Ox 100% on R/A; rb1 13:30 BP 148 / 72; Pulse 58; Resp 17; Pulse Ox 100% ; rb1 14:20 BP 135 / 74; Pulse 60; Resp 18; Pulse Ox 99% ; rb1 14:45 BP 122 / 72; Pulse 60; Resp 17; Pulse Ox 100% on R/A; rb1 11:05 Body Mass Index 21.67 (68.49 kg, 177.80 cm) aj MDM: 11:40 Patient medically screened. gs 14:20 Data reviewed: vital signs, nurses notes. Response to treatment: the patient's symptoms gs have markedly improved after treatment, family wants to treat at home if bp can be explained by dehydration. made aware of bmp findings and cxr. pt is not septic , family wants to take him home will rx abx , precautions. 09/05 11:40 Order name: CBC with Diff; Complete Time: 13:25 09/05 11:40 Order name: Basic Metabolic Panel; Complete Time: 13:01 09/05 11:40 Order name: XRAY Chest Pa And Lat (2 Views); Complete Time: 13:01 Administered Medications: 12:25 Drug: NS 0.9% 1000 ml Route: IV; Rate: 1 bolus; Site: left antecubital; rb1 13:35 Follow up: IV Status: Completed infusion rb1 Disposition: 09/05/17 14:28 Discharged to Home. Impression: Lobar pneumonia, unspecified organism, Dehydration. - Condition is Stable. - Discharge Instructions: Dehydration, Elderly, Pneumonia, Adult. - Prescriptions for Levaquin 500 mg Oral Tablet - take 1 tablet by ORAL route once daily for 10 days; 10 tablet. - Medication Reconciliation Form, Thank You Letter, Antibiotic Education, Prescription Opioid Use form. - Follow up: Private Physician; When: 1 - 2 days; Reason: Re-evaluation by your physician. Signatures: Dispatcher [employer] Joy Parra RN RN aj Barber, Rebecca, RN RN rb1 Anthony Garcia MD MD
--- NOTE | 2017-09-05 14:28 | ER ---
Nurse's Notes [facility] Name: Kevin Sandhu Age: 77 yrs Sex: Male : 1940 Arrival Date: 09/05/2017 Time: 10:54 Bed 16 Private MD: Willy Andrade R Diagnosis: Lobar pneumonia, unspecified organism;Dehydration Presentation: 09/05 11:02 Presenting complaint: Child states: Physical therapist reported low blood pressure at home. Patient denies dizziness. Reports that patient has had productive cough yesterday which produced, what appeared to be vomit. Concerned for aspiration. Transition of care: patient was not received from another setting of care. Onset of symptoms was September 05, 2017. Care prior to arrival: None. 11:02 Method Of Arrival: Wheelchair 11:02 Acuity: ERICA 3 Triage Assessment: 11:05 General: Appears in no apparent distress. comfortable, Behavior is calm, cooperative, aj appropriate for age. Pain: Denies pain. Neuro: Level of Consciousness is awake, alert, obeys commands, Reports headache. Respiratory: Airway is patent Respiratory effort is even, unlabored, Respiratory pattern is regular, symmetrical. Respiratory: Reports cough that is. Derm: Skin is intact, is healthy with good turgor, Skin is pink, warm \T\ dry. normal. Historical: - Allergies: 11: No Known Allergies; aj - Home Meds: 11:05 aspirin 81 mg Oral TbEC 1 tab once daily [Active]; finasteride 5 mg Oral tab 1 tab once aj daily [Active]; carbidopa-levodopa 25-100 mg Oral tab 1 tab 3 times per day [Active]; lisinopril 20 mg Oral tab 1 tab once daily [Active]; memantine 10 mg Oral tab 1 tab 2 times per day [Active]; metoprolol tartrate 50 mg Oral tab 1 tab 2 times per day [Active]; Nuplazid 17 mg Oral tab 2 tabs once daily [Active]; omeprazole 20 mg Oral cpDR 1 cap once daily [Active]; tamsulosin 0.4 mg Oral cp24 1 cap once daily [Active]; Zyrtec 10 mg Oral tab 1 tab once daily [Active]; - PMHx: 11:05 Parkinsons; Prostate Cancer; GERD; aj - PSHx: 11:05 colon; aj - Immunization history:: Adult Immunizations up to date. - Social history:: Smoking status: Patient/guardian denies using tobacco. Screenin:10 Abuse screen: Denies threats or abuse. Nutritional screening: No deficits noted. rb1 Tuberculosis screening: No symptoms or risk factors identified. Fall Risk No fall in past 12 months (0 pts). Secondary diagnosis (15 points) impaired mobility, No IV (0 pts). Ambulatory Aid- Crutches/Cane/Walker (15 pts). Gait- Impaired (20 pts.). Mental Status- Oriented to own ability (0 pts). Assessment: 11:10 General: Appears in no apparent distress. comfortable, slender, well groomed, well rb1 developed, Behavior is calm, cooperative. Pain: Denies pain. Neuro: Denies weakness dizziness. Neuro: Level of Consciousness is awake, alert, obeys commands, Oriented to person, place. Cardiovascular: Capillary refill < 3 seconds is brisk in bilateral fingers. Respiratory: Reports cough that is productive, clear. Respiratory: Airway is patent Respiratory effort is even, unlabored, Respiratory pattern is regular, symmetrical. GI: No signs and/or symptoms were reported involving the gastrointestinal system. : No signs and/or symptoms were reported regarding the genitourinary system. Derm: Skin is pink, warm \T\ dry. 12:09 Reassessment: Patient appears in no apparent distress at this time. Patient and/or rb1 family updated on plan of care and expected duration. Pain level reassessed. Patient is alert, oriented x 3, equal unlabored respirations, skin warm/dry/pink. Patient denies pain at this time. 13:00 Reassessment: Patient appears in no apparent distress at this time. No changes from rb1 previously documented assessment. Son at bedside. 14:00 Reassessment: Patient appears in no apparent distress at this time. Patient and/or rb1 family updated on plan of care and expected duration. Pain level reassessed. Patient is alert, oriented x 3, equal unlabored respirations, skin warm/dry/pink. Patient denies pain at this time. 14:44 Reassessment: Patient appears in no apparent distress at this time. No changes from rb1 previously documented assessment. Patient denies pain at this time. Vital Signs: 11:05 BP 109 / 69; Pulse 62; Resp 20; Temp 97.5; Pulse Ox 100% on R/A; Weight 68.49 kg; aj Height 5 ft. 10 in. (177.80 cm); Pain 0/10; 11:23 BP 112 / 64 Supine; Pulse 56; Pulse Ox 99% on R/A; rb1 11:25 BP 97 / 65 Sitting; Pulse 58; Pulse Ox 99% on R/A; rb1 11:27 BP 87 / 55; Pulse 66; Pulse Ox 97% on R/A; rb1 12:00 BP 93 / 61; Pulse 57; Resp 19; Pulse Ox 99% on R/A; rb1 12:30 BP 125 / 69; Pulse 59; Resp 18; Pulse Ox 100% on R/A; rb1 13:30 BP 148 / 72; Pulse 58; Resp 17; Pulse Ox 100% ; rb1 14:20 BP 135 / 74; Pulse 60; Resp 18; Pulse Ox 99% ; rb1 14:45 BP 122 / 72; Pulse 60; Resp 17; Pulse Ox 100% on R/A; rb1 11:05 Body Mass Index 21.67 (68.49 kg, 177.80 cm) aj ED Course: 10:54 Patient arrived in ED. as 10:54 Willy Andrade MD is Private Physician. as 11:04 Triage completed. aj 11:05 Arm band placed on left wrist. Patient placed in an exam room. aj 11:08 Anthony Garcia MD is Attending Physician. gs 11:10 Patient has correct armband on for positive identification. Bed in low position. Call rb1 light in reach. Side rails up X2. Pulse ox on. NIBP on. 11:16 Neetu Quinn, RN is Primary Nurse. rb1 12:25 Inserted saline lock: 22 gauge in left antecubital area, using aseptic technique. Blood rb1 collected. 12:42 X-ray completed. PT SOMEWHAT ALTERED/OUT OF IT STATE OF MIND, UNABLE TO FOLLOW jb2 COMMANDS, BEST IMAGES OBTAINED DUE TO PT STATUS. Patient moved to radiology via stretcher. 12:45 Patient moved back from radiology. jb2 12:46 XRAY Chest Pa And Lat (2 Views) In Process Unspecified. EDMS 14:45 No provider procedures requiring assistance completed. IV discontinued, intact, rb1 bleeding controlled, No redness/swelling at site. Pressure dressing applied. Administered Medications: 12:25 Drug: NS 0.9% 1000 ml Route: IV; Rate: 1 bolus; Site: left antecubital; rb1 13:35 Follow up: IV Status: Completed infusion rb1 Outcome: 14:28 Discharge ordered by . gs 14:45 Discharged to home via wheelchair, with family. rb1 14:45 Condition: stable 14:45 Discharge instructions given to patient, Instructed on discharge instructions, follow up and referral plans. medication usage, Demonstrated understanding of instructions, follow-up care, medications, Prescriptions given X 1. 14:45 Patient left the ED. rb1 Signatures: Dispatcher [employer] EDMS Joy Babb RN RN Art Mustafa Amelia as Barber, Rebecca, RN RN rb1 Anthony Garcia MD MD gs Corrections: (The following items were deleted from the chart) 11:07 11:02 Presenting complaint: Child states: Physical therapist reported low blood aj pressure at home. Patient denies dizziness. aj :07 11:02 Acuity: ERICA 4 aj aj : 11:36 General: Appears in no apparent distress. comfortable, slender, well groomed, rb1 well developed, Behavior is calm, cooperative, rb1 : 11:36 Pain: Denies pain. rb1 rb1 11:39 11:36 Neuro: Level of Consciousness is awake, alert, obeys commands, Oriented to rb1 person, place, rb1 : 11:36 Cardiovascular: Capillary refill < 3 seconds is brisk in bilateral fingers rb1 rb1 11:39 11:36 Respiratory: Airway is patent Respiratory effort is even, unlabored, Respiratory rb1 pattern is regular, symmetrical, rb1 : 11:36 Respiratory: Reports cough that is productive, clear rb1 rb1 : 11:36 Neuro: Denies weakness dizziness, rb1 rb1 :39 11:36 GI: No signs and/or symptoms were reported involving the gastrointestinal system. rb1 rb1 11:39 11:36 : No signs and/or symptoms were reported regarding the genitourinary system. rb1rb1 11:39 11:36 Derm: Skin is pink, warm \T\ dry. rb1 rb1 15:02 15:01 Patient left the ED. rb1 rb1
[2017-09-05 15:07] VITALS: TEMP 97.5
[2017-09-05 15:20] VITALS: BP 122/72; O2SAT 100
== END 2017-09-05 15:01 | disposition home or self-care (01) ==
LOC: ER 10:52
DX: J18.1 Lobar pneumonia, unspecified organism (principal); E86.0 Dehydration; K21.9 Gastro-esophageal reflux disease without esophagitis; G20 Parkinson's disease; Z79.82 Long term (current) use of aspirin; Z85.46 Personal history of malignant neoplasm of prostate
CPT/HCPCS: 36415; 71046; 80048; 85025; 96360; 99284; J7030

== ENCOUNTER 2017-11-03 19:05 | Emergency (ER) | payer OTHER, BC ==
--- OUTSIDE RECORDS SUMMARY | 2017-11-03 19:09 | XMS REPORT ---
:1940 [facility] Address [address] [place] [address] [address] [place] [address] Care Team Providers Name Role Phone DR [...] CPK (test code=32A) 995 IU/L 39-308 CARDIAC [id number] 04:24:00 Test Item Value Reference Range Comments TROPONIN I (test code=A84) 0.058 ng/mL 0.000-0.045 CKMB (test code=A49) 29.7 ng/mL <=3.6 CPK (test code=32A) 1058 IU/L 39-308 BASIC METABOLIC [id number] 03:53:00 Test Item Value Reference Range Comments [...] (test code=RBCMOR) NORMAL CT CERVICAL SPINE W/O [id number] 20:41:24Location:: [id number]: Neck painComparison: NoneTechnique: Multiplanar axial, sagittal, and [...] neural foramen encroachment whichfurther evaluation is recommended.CARDIAC [id number] 20:40:00 Test Item Value Reference Range Comments TROPONIN I (test code=A84) 0.081 ng/mL 0.000-0.045 CKMB (test code=A49) 44.5 ng/mL <=3.6 CPK (test code=32A) 1078 IU/L 39-308 COMPREHENSIVE METABOLIC [id number] 20:35:00 Test Item Value Reference Range Comments [...] IU/L <=78 CT ABDOMEN AND PELVIS W/O [id number] 20:31:42LOCATION CODE: A1.HISTORY : Low back and [...] aorta. 5. Enlarged prostate.6. Constipation..CT CHEST W/O [id number] 20:25:41LOCATION CODE: A1.HISTORY : chest painCOMPARISON: NoneTECHNIQUE: [...] atheroscleroticcalcification of a nondilated aorta.CT HEAD W/O [id number] 20:17:03LOCATION CODE: A1.HISTORY: HeadacheCOMPARISON: NoneTECHNIQUE: Serial [...]
--- NOTE | 2017-11-03 20:45 | RAD REPORT ---
EXAM DESCRIPTION: RAD - Elbow Right 3 View - 11/03/2017 8:38 pm CLINICAL HISTORY: Right elbow pain status post fall FINDINGS: No fracture or dislocation is seen. The bones are osteoporotic
--- NOTE | 2017-11-03 20:47 | RAD REPORT ---
EXAM DESCRIPTION: RAD -Hand Left 3 View - 11/03/2017 8:39 pm CLINICAL HISTORY: Left hand pain status post injury FINDINGS: No fracture or dislocation is seen. The bones are osteoporotic
--- NOTE | 2017-11-03 21:02 | RAD REPORT ---
EXAM DESCRIPTION: CT - Head C Spine Mpr Wo Con - 11/03/2017 8:48 pm CLINICAL HISTORY: Head and neck injury status post fall. Head and neck pain COMPARISON: August 2017 TECHNIQUE: Computed axial tomography of the head and cervical spine was obtained. Sagittal and coronal reconstruction was performed. All CT scans are performed using dose optimization technique as appropriate and may include automated exposure control or mA/KV adjustment according to patient size. FINDINGS: An intracranial bleed is not seen. Mild to moderate low-density areas within periventricul ar and deep white matter likely represent ischemic changes secondary to small vessel disease. The brian tricles are normal in caliber. An extra-axial fluid collection is not noted.Fluid within the visualiz ed sinuses and mastoids is not seen A cervical fracture is not visualized. No dislocation is noted. 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 A cervical fracture is not visualized. If the patient continues to have symptoms to suggest intracra nial /spinal cord pathology then MRI would be recommended
[2017-11-03 21:33] LABS: Absolute Lymphocytes (CBC) 1.5 K/uL (0.7-4.9); Absolute Monocytes 0.8 K/uL (0.1-1.3); Absolute Neutrophil 4.8 K/uL (1.8-8.0); Basophils % 0.4 % (0-1.3); Eosinophils % 1.5 % (0-4.4); Hematocrit 38.8 % (39.6-49.0); Lymphocytes % 20.3 % (15.3-44.8); MCH 30.9 pg (27.0-35.0); MCV 90.1 fL (80-100); MPV 7.8 fL (7.6-11.3); Monocytes % 11.6 % (3.3-12.3); RBC Red Blood Cell Count 4.31 M/uL (4.33-5.43)
[2017-11-03 21:37] LABS: Potassium 3.3 mEq/L (3.6-5.0)
[2017-11-03 21:40] LABS: Albumin 3.8 g/dL (3.2-5.5); Bilirubin Total 1.2 mg/dL (0.3-1.2); Protein, Total 5.9 g/dL (6.0-8.3)
[2017-11-03] MEDS ORDERED: NA CHLORIDE 0.9% 500 ML ONE (22:43)
[2017-11-03] MEDS ORDERED: TRAZODONE 50 MG TABLET ONE (23:39)
[2017-11-03 23:46] LABS: Urine Blood 1+ (NEG); Urine Glucose NEGATIVE (NEG); Urine Protein NEGATIVE (NEG)
[2017-11-03 23:47] LABS: Urine Mucus 2+ /HPF (NONE SEEN)
[2017-11-03 23:48] LABS: Urine Amorphous Sediment 2+ /HPF (NONE SEEN); Urine Bacteria <20 /HPF (NONE SEEN)
[2017-11-03 23:49] LABS: Urine Culture Reflex Order NOT NEEDED
--- NOTE | 2017-11-04 00:03 | EDPHYS ---
Physician Documentation [facility] Name: Kevin Sandhu Age: 77 yrs Sex: Male : 1940 Arrival Date: 11/03/2017 Time: 19:08 Bed 30 Private MD: Willy Andrade R ED Physician Yunier Espinoza HPI: 11/03 21:00 This 77 yrs old Male presents to ER via Wheelchair with complaints of Hand pm1 Injury, falling, Urinary Problem. 21:00 Patient sent to the ER for evaluation of hand injury, elbow injury, and recent falling pm1 for the past 2-3 days. [facility] would also like him to be evaluated for possible UTI. Patient has been recently started on trazodone and Ativan for agitation related to dementia/alzheimer's. Patient with skin tears present to left hand and right elbow. Historical: - Allergies: 19:45 No Known Allergies; aj - Home Meds: 19:45 aspirin 81 mg Oral TbEC 1 tab once daily [Active]; carbidopa-levodopa 25-100 mg Oral aj tab 1 tab 3 times per day [Active]; finasteride 5 mg Oral tab 1 tab once daily [Active]; lisinopril 20 mg Oral tab 1 tab once daily [Active]; memantine 10 mg Oral tab 1 tab 2 times per day [Active]; metoprolol tartrate 50 mg Oral tab 1 tab 2 times per day [Active]; Nuplazid 17 mg Oral tab 2 tabs once daily [Active]; omeprazole 20 mg Oral cpDR 1 cap once daily [Active]; tamsulosin 0.4 mg Oral cp24 1 cap once daily [Active]; Zyrtec 10 mg Oral tab 1 tab once daily [Active]; - PMHx: 19:45 GERD; Parkinsons; Prostate Cancer; aj - PSHx: 19:45 colon; aj - Immunization history:: Adult Immunizations up to date. - Social history:: Smoking status: Patient/guardian denies using tobacco. - Ebola Screening: : Patient negative for fever greater than or equal to 101.5 degrees Fahrenheit, and additional compatible Ebola Virus Disease symptoms Patient denies exposure to infectious person Patient denies travel to an Ebola-affected area in the 21 days before illness onset No symptoms or risks identified at this time. ROS: 21:00 Constitutional: Negative for fever, chills, and weight loss, Eyes: Negative for injury, pm1 pain, redness, and discharge, ENT: Negative for injury, pain, and discharge, Neck: Negative for injury, pain, and swelling, Cardiovascular: Negative for chest pain, palpitations, and edema, Respiratory: Negative for shortness of breath, cough, wheezing, and pleuritic chest pain, Abdomen/GI: Negative for abdominal pain, nausea, vomiting, diarrhea, and constipation, Back: Negative for injury and pain, : Negative for injury, bleeding, discharge, and swelling, MS/Extremity: Negative for injury and deformity. 21:00 Skin: Positive for skin tear to left hand and right elbow. 21:00 Unable to obtain ROS due to baseline dementia. Exam: 21:00 Constitutional: This is a well developed, well nourished patient who is awake, alert, pm1 and in no acute distress. Head/Face: Normocephalic, atraumatic. Eyes: Pupils equal round and reactive to light, extra-ocular motions intact. Lids and lashes normal. Conjunctiva and sclera are non-icteric and not injected. Cornea within normal limits. Periorbital areas with no swelling, redness, or edema. ENT: Nares patent. No nasal discharge, no septal abnormalities noted. Tympanic membranes are normal and external auditory canals are clear. Oropharynx with no redness, swelling, or masses, exudates, or evidence of obstruction, uvula midline. Mucous membranes moist. Neck: Trachea midline, no thyromegaly or masses palpated, and no cervical lymphadenopathy. Supple, full range of motion without nuchal rigidity, or vertebral point tenderness. No Meningismus. Chest/axilla: Normal chest wall appearance and motion. Nontender with no deformity. No lesions are appreciated. Cardiovascular: Regular rate and rhythm with a normal S1 and S2. No gallops, murmurs, or rubs. No pulse deficits. Respiratory: Lungs have equal breath sounds bilaterally, clear to auscultation and percussion. No rales, rhonchi or wheezes noted. No increased work of breathing, no retractions or nasal flaring. Abdomen/GI: Soft, non-tender, with normal bowel sounds. No distension or tympany. No guarding or rebound. No evidence of tenderness throughout. Back: No spinal tenderness. No costovertebral tenderness. Full range of motion. MS/ Extremity: Pulses equal, no cyanosis. Neurovascular intact. Full, normal range of motion. 21:00 Skin: injury, small skin tears to left dorsal aspect of hand and right elbow. 21:00 Neuro: Orientation: to person, Not oriented to place, time, situation, Baseline dementia per friend at bedside. Motor: is normal, moves all fours. Vital Signs: 19:45 BP 136 / 84; Pulse 94; Resp 19; Temp 98.0; Pulse Ox 97% on R/A; Weight 68.04 kg; Height aj 5 ft. 10 in. (177.80 cm); 20:00 BP 169 / 92; Pulse 68; Resp 18; Pulse Ox 100% ; tl3 22:46 BP 149 / 79; Pulse 64; Resp 18; Pulse Ox 99% on R/A; tl3 11/04 00:40 BP 157 / 120; Pulse 75; Resp 16; Pulse Ox 98% ; tl3 11/03 19:45 Body Mass Index 21.52 (68.04 kg, 177.80 cm) MDM: 11/03 19:56 Patient medically screened. [facility] 23:58 Data reviewed: vital signs. Data interpreted: Pulse oximetry: on room air is 99 %. pm1 Interpretation: normal. Counseling: I had a detailed discussion with the patient and/or guardian regarding: the historical points, exam findings, and any diagnostic results supporting the discharge/admit diagnosis, lab results, radiology results, the need for outpatient follow up, to return to the emergency department if symptoms worsen or persist or if there are any questions or concerns that arise at home. 11/03 20:07 Order name: Urine Microscopic Only; Complete Time: 23:57 pm1 11/03 20:07 Order name: CBC with Diff; Complete Time: 22:30 pm1 11/03 20:07 Order name: Hand Left 3 View XRAY; Complete Time: 21:28 pm1 11/03 20:07 Order name: Elbow Right 3 View XRAY; Complete Time: 21:28 pm1 11/03 20:07 Order name: CMP; Complete Time: 22:30 pm1 11/03 23:34 Order name: Urine Dipstick--Ancillary (enter results); Complete Time: 23:57 cc 11/03 20:07 Order name: Urine Dipstick-Ancillary (obtain specimen); Complete Time: 23:33 pm1 11/03 20:07 Order name: Straight Cath - Urine; Complete Time: 22:12 pm1 11/03 20:07 Order name: IV Saline Lock; Complete Time: 22:12 pm1 11/03 20:07 Order name: CT Head C Spine; Complete Time: 21:28 pm1 Administered Medications: 22:44 Drug: NS 0.9% 500 ml Route: IV; Rate: bolus; Site: right forearm; tl3 23:30 Follow up: IV Status: Completed infusion; IV Intake: 500ml tl3 11/04 01:21 Not Given (Patient Refused): traZODONE 50 mg PO once tl3 Disposition: 11/04/17 00:02 Discharged to Home. Impression: Abrasion of left hand - skin tear, Abrasion of right elbow - skin tear, Other slipping, tripping and stumbling and falls. - Condition is Stable. - Discharge Instructions: Fall Prevention and Home Safety, Skin Tear Care. - Medication Reconciliation Form, Thank You Letter form. - Follow up: Emergency Department; When: As needed; Reason: Worsening of condition. Follow up: Willy Andrade MD; When: 2 - 3 days; Reason: Recheck today's complaints, Continuance of care, Re-evaluation by your physician. - Problem is new. - Symptoms have improved. Addendum: 11/06/2017 07:13 Co-signature as Attending Physician, Yunier Espinoza MD I agree with the assessment and c fuentes plan of care. Signatures: Dispatcher [employer] EDJoy Otoole RN RN aj Anderson, Corey, MD MD cha Marinas, Patrick, SUGARCANE PLANTER SUGARCANE PLANTER pm1 Essie Robert RN RN tl3 Corrections: (The following items were deleted from the chart) 11/04 01:24 00:02 11/04/2017 00:02 Discharged to Home. Impression: Abrasion of left hand - skin tl3 tear; Abrasion of right elbow - skin tear; Other slipping, tripping and stumbling and falls. Condition is Stable. Forms are Medication Reconciliation Form, Thank You Letter, Antibiotic Education, Prescription Opioid Use. Follow up: Emergency Department; When: As needed; Reason: Worsening of condition. Follow up: Willy Andrade; When: 2 - 3 days; Reason: Recheck today's complaints, Continuance of care, Re-evaluation by your physician. Problem is new. Symptoms have improved. pm1
--- NOTE | 2017-11-04 00:03 | ER ---
Nurse's Notes [facility] Name: Kevin Sandhu Age: 77 yrs Sex: Male : 1940 Arrival Date: 11/03/2017 Time: 19:08 Bed 30 Private MD: Willy Andrade R Diagnosis: Abrasion of left hand-skin tear;Abrasion of right elbow-skin tear;Other slipping, tripping and stumbling and falls Presentation: 11/03 19:42 Presenting complaint: Child states: Frequent falling within the past 2-3 days. Reports aj abrasions to right arm and left hand. Denies injury to head. Assisted living requesting evaluation for UTI. Transition of care: patient was not received from another setting of care. Onset of symptoms was October 31, 2017. Risk Assessment: Do you want to hurt yourself or someone else? Patient reports no desire to harm self or others. Care prior to arrival: None. 19:42 Method Of Arrival: Wheelchair 19:42 Acuity: ERICA 3 aj 11/04 01:23 Initial Sepsis Screen: Does the patient meet any 2 criteria? No. Patient's initial tl3 sepsis screen is negative. Does the patient have a suspected source of infection? No. Patient's initial sepsis screen is negative. Triage Assessment: 11/03 19:45 General: Appears in no apparent distress. comfortable, Behavior is restless. Pain: aj Complains of pain in left hand and right arm Unable to use pain scale. FLACC scale score is 5 out of 10. Neuro: Level of Consciousness is awake, alert, obeys commands, Oriented to person, place, time, situation, Appropriate for age. Respiratory: Airway is patent Respiratory effort is even, unlabored, Respiratory pattern is regular, symmetrical. Derm: Skin is intact, is healthy with good turgor, Skin is pink, warm \T\ dry. normal. Musculoskeletal: Circulation, motion, and sensation intact. Range of motion: intact in all extremities. Injury Description: Abrasion sustained to left hand and right arm. Historical: - Allergies: 19:45 No Known Allergies; aj - Home Meds: 19:45 aspirin 81 mg Oral TbEC 1 tab once daily [Active]; carbidopa-levodopa 25-100 mg Oral aj tab 1 tab 3 times per day [Active]; finasteride 5 mg Oral tab 1 tab once daily [Active]; lisinopril 20 mg Oral tab 1 tab once daily [Active]; memantine 10 mg Oral tab 1 tab 2 times per day [Active]; metoprolol tartrate 50 mg Oral tab 1 tab 2 times per day [Active]; Nuplazid 17 mg Oral tab 2 tabs once daily [Active]; omeprazole 20 mg Oral cpDR 1 cap once daily [Active]; tamsulosin 0.4 mg Oral cp24 1 cap once daily [Active]; Zyrtec 10 mg Oral tab 1 tab once daily [Active]; - PMHx: 19:45 GERD; Parkinsons; Prostate Cancer; aj - PSHx: 19:45 colon; aj - Immunization history:: Adult Immunizations up to date. - Social history:: Smoking status: Patient/guardian denies using tobacco. - Ebola Screening: : Patient negative for fever greater than or equal to 101.5 degrees Fahrenheit, and additional compatible Ebola Virus Disease symptoms Patient denies exposure to infectious person Patient denies travel to an Ebola-affected area in the 21 days before illness onset No symptoms or risks identified at this time. Screenin:00 Abuse screen: Denies threats or abuse. Nutritional screening: No deficits noted. tl3 Tuberculosis screening: No symptoms or risk factors identified. Fall Risk Fall in past 12 months (25 points). Assessment: 20:00 General: Appears in no apparent distress. slender, well developed, well nourished, tl3 Behavior is flat. Pain: Unable to use pain scale. Does not appear to understand pain scale. Neuro: Level of Consciousness is awake, confused, Oriented to person. Cardiovascular: Heart tones S1 S2 present Patient's skin is warm and dry. Respiratory: Airway is patent Respiratory effort is even, unlabored, Respiratory pattern is regular, symmetrical, Breath sounds are clear bilaterally. GI: No deficits noted. No signs and/or symptoms were reported involving the gastrointestinal system. : Parent/caregiver report the patient having incontinence. EENT: No deficits noted. No signs and/or symptoms were reported regarding the EENT system. Derm: Skin is fragile, is thin, with poor turgor has skin tears on to right elbow and right hand. Musculoskeletal: No signs and/or symptoms reported regarding the musculoskeletal system. Parent/caregiver report the patient having pt with hx of falls, three in the last couple of days, new med changes. 21:42 Reassessment: Patient appears in no apparent distress at this time. No changes from tl3 previously documented assessment. Patient and/or family updated on plan of care and expected duration. Pain level reassessed. Patient is alert, oriented x 3, equal unlabored respirations, skin warm/dry/pink. pt perianal area cleaned of urine and stool, new brief placed. 22:46 Reassessment: Patient appears in no apparent distress at this time. No changes from tl3 previously documented assessment. Patient and/or family updated on plan of care and expected duration. Pain level reassessed. Patient is alert, oriented x 3, equal unlabored respirations, skin warm/dry/pink. 11/04 00:40 Reassessment: Patient appears in no apparent distress at this time. No changes from tl3 previously documented assessment. Patient and/or family updated on plan of care and expected duration. Pain level reassessed. Patient is alert, oriented x 3, equal unlabored respirations, skin warm/dry/pink. Vital Signs: 11/03 19:45 BP 136 / 84; Pulse 94; Resp 19; Temp 98.0; Pulse Ox 97% on R/A; Weight 68.04 kg; Height aj 5 ft. 10 in. (177.80 cm); 20:00 BP 169 / 92; Pulse 68; Resp 18; Pulse Ox 100% ; tl3 22:46 BP 149 / 79; Pulse 64; Resp 18; Pulse Ox 99% on R/A; tl3 11/04 00:40 BP 157 / 120; Pulse 75; Resp 16; Pulse Ox 98% ; tl3 11/03 19:45 Body Mass Index 21.52 (68.04 kg, 177.80 cm) ED Course: 11/03 19:08 Patient arrived in ED. es 19:08 Willy Andrade MD is Private Physician. es 19:44 Triage completed. aj 19:45 Arm band placed on right wrist. Patient placed. aj 19:55 Berto Tim NP is PHCP. pm1 19:55 Yunier Espinoza MD is Attending Physician. pm1 20:00 Patient has correct armband on for positive identification. Bed in low position. Call tl3 light in reach. Side rails up X2. Adult w/ patient. Warm blanket given. 20:00 No provider procedures requiring assistance completed. Straight cath inserted, using tl3 sterile technique, 16 Fr. Returned no urine . Inserted saline lock: 24 gauge in right forearm, using aseptic technique. Blood collected. 20:37 Hand Left 3 View XRAY In Process Unspecified. EDMS 20:37 Elbow Right 3 View XRAY In Process Unspecified. EDMS 20:48 CT Head C Spine In Process Unspecified. EDMS 21:29 Essie Robert, NEAL is Primary Nurse. tl3 11/04 00:01 Willy Andrade MD is Referral Physician. pm1 00:40 IV discontinued, intact, bleeding controlled, No redness/swelling at site. Pressure tl3 dressing applied. Administered Medications: 11/03 22:44 Drug: NS 0.9% 500 ml Route: IV; Rate: bolus; Site: right forearm; tl3 23:30 Follow up: IV Status: Completed infusion; IV Intake: 500ml tl3 11/04 01:21 Not Given (Patient Refused): traZODONE 50 mg PO once tl3 Intake: 11/03 23:30 IV: 500ml; Total: 500ml. tl3 Outcome: 11/04 00:02 Discharge ordered by . pm1 00:40 Discharged to home ambulatory. tl3 00:40 Condition: stable 00:40 Discharge instructions given to friend, Instructed on discharge instructions, Demonstrated understanding of instructions, follow-up care, medications. 01:24 Patient left the ED. tl3 Signatures: Dispatcher [employer] Joy Parra, Victoria Vaca RN, Patrick, NP [employer] pm1 Essie Robert, NEAL DE JESUS tl3
[2017-11-04 01:29] VITALS: TEMP 98
[2017-11-04 01:32] VITALS: BP 157/120; O2SAT 98
== END 2017-11-04 01:24 | disposition home or self-care (01) ==
LOC: ER 19:05
DX: S50.311A Abrasion of right elbow, initial encounter (principal); W01.0XXA Fall on same level from slipping, tripping and stumbling without subsequent striking against object, initial encounter; Y93.9 Activity, unspecified; Y92.099 Unspecified place in other non-institutional residence as the place of occurrence of the external cause; Z79.82 Long term (current) use of aspirin; Z85.46 Personal history of malignant neoplasm of prostate; G20 Parkinson's disease; F02.80 Dementia in other diseases classified elsewhere, unspecified severity, without behavioral disturbance, psychotic disturbance, mood disturbance, and anxiety; K21.9 Gastro-esophageal reflux disease without esophagitis
CPT/HCPCS: 36415; 51702; 70450; 72125; 80053; 81003; 81015; 85025; 96360; 99284

== ENCOUNTER 2018-02-06 00:54 | Inpatient (IN) | payer OTHER, BC ==
--- OUTSIDE RECORDS SUMMARY | 2018-02-06 00:56 | XMS REPORT ---
:1940 [facility] Address [address] [place] [address] Dr. Zarco [address] [place] [id number] Care Team Providers Name Role Phone DR [...] CPK (test code=32A) 995 IU/L 39-308 CARDIAC [id number] 04:24:00 Test Item Value Reference Range Comments TROPONIN I (test code=A84) 0.058 ng/mL 0.000-0.045 CKMB (test code=A49) 29.7 ng/mL <=3.6 CPK (test code=32A) 1058 IU/L 39-308 BASIC METABOLIC [id number] 03:53:00 Test Item Value Reference Range Comments [...] (test code=RBCMOR) NORMAL CT CERVICAL SPINE W/O [id number] 20:41:24Location:: [id number]: Neck painComparison: NoneTechnique: Multiplanar axial, sagittal, and [...] neural foramen encroachment whichfurther evaluation is recommended.CARDIAC [id number] 20:40:00 Test Item Value Reference Range Comments TROPONIN I (test code=A84) 0.081 ng/mL 0.000-0.045 CKMB (test code=A49) 44.5 ng/mL <=3.6 CPK (test code=32A) 1078 IU/L 39-308 COMPREHENSIVE METABOLIC [id number] 20:35:00 Test Item Value Reference Range Comments [...] IU/L <=78 CT ABDOMEN AND PELVIS W/O [id number] 20:31:42LOCATION CODE: A1.HISTORY : Low back and [...] aorta. 5. Enlarged prostate.6. Constipation..CT CHEST W/O [id number] 20:25:41LOCATION CODE: A1.HISTORY : chest painCOMPARISON: NoneTECHNIQUE: [...] atheroscleroticcalcification of a nondilated aorta.CT HEAD W/O [id number] 20:17:03LOCATION CODE: A1.HISTORY: HeadacheCOMPARISON: NoneTECHNIQUE: Serial [...]
--- NOTE | 2018-02-06 02:17 | ER ---
Nurse's Notes [facility] Name: Kevin Sandhu Age: 77 yrs Sex: Male : 1940 Arrival Date: 02/06/2018 Time: 01:05 Bed 6 Private MD: Diagnosis: Displaced fracture of base of neck of left femur Presentation: 02/06 01:09 Presenting complaint: EMS states: Patient had unwitnessed fall about 2000 tonight, lp1 patient found on floor next to bed, no significant injuries noted per staff; Oncoming shift attempted to help patient ambulate to bathroom and could not bear weight, grimacing noted to left hip, small bruise. Transition of care: patient was received from another setting of care (long-term care facility), [facility]. Onset of symptoms was February 05, 2018 at 20:00. Risk Assessment: Do you want to hurt yourself or someone else? Patient reports no desire to harm self or others. Initial Sepsis Screen: Does the patient meet any 2 criteria? No. Patient's initial sepsis screen is negative. Does the patient have a suspected source of infection? No. Patient's initial sepsis screen is negative. Care prior to arrival: Glucose check: 140. 01:09 Method Of Arrival: EMS: [facility] lp1 01:09 Acuity: ERICA 3 lp1 Historical: - Allergies: :19 No Known Allergies; lp1 - Home Meds: :19 aspirin 81 mg Oral TbEC 1 tab once daily [Active]; carbidopa-levodopa 25-100 mg Oral lp1 tab 1 tab 3 times per day [Active]; Citrucel Fiber Laxative Oral daily [Active]; finasteride 5 mg Oral tab 1 tab once daily [Active]; Geodon 20 mg oral cap daily [Active]; melatonin 3 mg Oral tab nightly [Active]; memantine 10 mg Oral tab 1 tab 2 times per day [Active]; metoprolol tartrate 50 mg Oral tab 0.5 tab 2 times per day [Active]; Mucinex 600 mg oral Ta12 daily [Active]; Nuplazid 17 mg Oral tab 1 tabs twice a day [Active]; omeprazole 20 mg Oral cpDR 1 cap once daily [Active]; tramadol 50 mg Oral tab [Active]; trazodone 100 mg Oral tab nightly [Active]; Zyrtec 10 mg Oral tab 1 tab once daily [Active]; - PMHx: 01:19 GERD; Parkinsons; Prostate Cancer; Dementia; lp1 - PSHx: 01:19 Bowel resection; Cholecystectomy; lp1 - Immunization history:: Adult Immunizations up to date. - Social history:: Smoking status: Patient/guardian denies using tobacco, never smoked. - Ebola Screening: : No symptoms or risks identified at this time. Screenin:21 Abuse screen: Denies threats or abuse. Denies injuries from another. Nutritional lp1 screening: No deficits noted. Tuberculosis screening: No symptoms or risk factors identified. Fall Risk None identified. Assessment: 01:22 General: Appears in no apparent distress. Behavior is calm. Pain: Unable to use pain lp1 scale. Does not appear to understand pain scale. Neuro: Level of Consciousness is awake, Oriented to person, Pupils are PERRLA. Cardiovascular: Patient's skin is warm and dry. Pulses are 2+ in right dorsalis pedis artery and left dorsalis pedis artery. Respiratory: Respiratory effort is even, unlabored, Breath sounds are clear bilaterally. GI: Abdomen is flat. : No signs and/or symptoms were reported regarding the genitourinary system. EENT: No signs and/or symptoms were reported regarding the EENT system. Derm: Skin is fragile, is thin, Skin is dry, Skin is normal, Bruising that is small bruise noted to left hip, small contusion to left side of head. Musculoskeletal: Circulation, motion, and sensation intact. 02:04 Reassessment: Patient returned from CT, wet brief changed. lp1 Vital Signs: 01:11 BP 161 / 84; Pulse 74; Resp 18; Temp 97.5(TE); Pulse Ox 93% on R/A; Weight 68.95 kg; lp1 Height 5 ft. 10 in. (177.80 cm); 02:00 BP 156 / 90; Pulse 79; Resp 18; Pulse Ox 95% on R/A; lp1 01:11 Body Mass Index 21.81 (68.95 kg, 177.80 cm) lp1 Rhonda Coma Score: 01:12 Eye Response: spontaneous(4). Verbal Response: confused(4). Motor Response: obeys lp1 commands(6). Total: 14. 01:12 Patient has hx of dementia lp1 ED Course: 01:05 Patient arrived in ED. bp 01:06 Jonathon Kaur PA is PHCP. jr8 01:06 Matthew Calloway MD is Attending Physician. jr8 01:07 Enrike Booth, NEAL is Primary Nurse. bp 01:11 Triage completed. lp1 01:11 Arm band placed on right wrist. lp1 01:21 Patient has correct armband on for positive identification. Pulse ox on. NIBP on. lp1 01:58 CT Head Brain wo Cont In Process Unspecified. EDMS 02:00 CT completed. Patient tolerated procedure well. Patient moved to radiology. kw1 02:01 X-ray completed. Patient tolerated procedure well. Patient moved back from radiology. kw1 02:15 Willy Andrade MD is Hospitalizing Provider. jr8 02:30 Inserted saline lock: 20 gauge in right forearm, using aseptic technique. Blood lp1 collected. 02:39 No provider procedures requiring assistance completed. cc3 02:39 Patient admitted, IV remains in place. cc3 Administered Medications: No medications were administered Outcome: 02:16 Decision to Hospitalize by Provider. jr8 02:39 Condition: stable cc3 02:39 Instructed on the need for admit, to patient and son 02:52 Admitted to Tele via stretcher, room 431, with chart, Report called to yamilex Jay RN 03:09 Patient left the ED. cc3 Signatures: Dispatcher [employer] EDAZ Shahana Rios, RN RN lp1 Jonathon Kaur PA PA jr8 Enrike Booth, NEAL RN Oralia De Leon kw1 Lexy Benjamin cc3 Corrections: (The following items were deleted from the chart) 01:21 01:09 Care prior to arrival: None. lp1 lp1 01:41 01:09 Transition of care: patient was not received from another setting of care. lp1 lp1 02:01 02:00 Patient moved to radiology via stretcher. kw1 kw1 02:40 02:30 Inserted saline lock: 20 gauge in right forearm, using aseptic technique. Blood cc3 collected. cc3
--- NOTE | 2018-02-06 02:17 | EDPHYS ---
Physician Documentation [facility] Name: Kevin Sandhu Age: 77 yrs Sex: Male : 1940 Arrival Date: 02/06/2018 Time: 01:05 Bed 6 Private MD: ED Physician Matthew Calloway HPI: 02/06 02:12 This 77 yrs old Male presents to ER via EMS with complaints of Hip Pain. [facility] 02:12 The patient or guardian reports decreased range of motion, pain. that occurred at a [facility] skilled nursing or assisted living facility, sustained from a fall, The patient is able to ambulate with assistance. The patient is able to bear partial body weight. the patient was discovered an unknown amount of time after the incident. The complaints affect the left leg. Onset: The symptoms/episode began/occurred acutely, today. Modifying factors: The symptoms are alleviated by nothing, the symptoms are aggravated by weight bearing. Associated signs and symptoms: Pertinent positives: None. Severity of symptoms: At their worst the symptoms were moderate, in the emergency department the symptoms are unchanged. It is unknown whether or not the patient has had similar symptoms in the past. The patient has not recently seen a physician. Patient brought in by EMS after NH discovered patient had fallen. Stated that when they had got him back to an upright position. Complained of left hip pain. Stated that he was grimacing. History of advanced stages of dementia . Historical: - Allergies: 01:19 No Known Allergies; lp1 - Home Meds: 01:19 aspirin 81 mg Oral TbEC 1 tab once daily [Active]; carbidopa-levodopa 25-100 mg Oral lp1 tab 1 tab 3 times per day [Active]; Citrucel Fiber Laxative Oral daily [Active]; finasteride 5 mg Oral tab 1 tab once daily [Active]; Geodon 20 mg oral cap daily [Active]; melatonin 3 mg Oral tab nightly [Active]; memantine 10 mg Oral tab 1 tab 2 times per day [Active]; metoprolol tartrate 50 mg Oral tab 0.5 tab 2 times per day [Active]; Mucinex 600 mg oral Ta12 daily [Active]; Nuplazid 17 mg Oral tab 1 tabs twice a day [Active]; omeprazole 20 mg Oral cpDR 1 cap once daily [Active]; tramadol 50 mg Oral tab [Active]; trazodone 100 mg Oral tab nightly [Active]; Zyrtec 10 mg Oral tab 1 tab once daily [Active]; - PMHx: 01:19 GERD; Parkinsons; Prostate Cancer; Dementia; lp1 - PSHx: 01:19 Bowel resection; Cholecystectomy; lp1 - Immunization history:: Adult Immunizations up to date. - Social history:: Smoking status: Patient/guardian denies using tobacco, never smoked. - Ebola Screening: : No symptoms or risks identified at this time. ROS: 02:12 Unable to obtain ROS due to baseline dementia. jr8 Exam: 02:12 Head/Face: Normocephalic. Small hematoma noted to left parietal region Eyes: Pupils jr8 equal round and reactive to light, extra-ocular motions intact. Lids and lashes normal. Conjunctiva and sclera are non-icteric and not injected. Cornea within normal limits. Periorbital areas with no swelling, redness, or edema. ENT: Nares patent. No nasal discharge, no septal abnormalities noted. Tympanic membranes are normal and external auditory canals are clear. Oropharynx with no redness, swelling, or masses, exudates, or evidence of obstruction, uvula midline. Mucous membranes moist. Neck: Trachea midline, no thyromegaly or masses palpated, and no cervical lymphadenopathy. Supple, full range of motion without nuchal rigidity, or vertebral point tenderness. No Meningismus. Chest/axilla: Normal chest wall appearance and motion. Nontender with no deformity. No lesions are appreciated. Cardiovascular: Regular rate and rhythm with a normal S1 and S2. No gallops, murmurs, or rubs. Normal PMI, no JVD. No pulse deficits. Respiratory: Lungs have equal breath sounds bilaterally, clear to auscultation and percussion. No rales, rhonchi or wheezes noted. No increased work of breathing, no retractions or nasal flaring. Abdomen/GI: Soft, non-tender, with normal bowel sounds. No distension or tympany. No guarding or rebound. No evidence of tenderness throughout. Back: No spinal tenderness. No costovertebral tenderness. Full range of motion. Skin: Warm, dry with normal turgor. Normal color with no rashes, no lesions, and no evidence of cellulitis. Neuro: Awake and alert, GCS 15, oriented to person, place, time, and situation. Cranial nerves II-XII grossly intact. Motor strength 5/5 in all extremities. Sensory grossly intact. Cerebellar exam normal. Normal gait. 02:12 Musculoskeletal/extremity: Extremities: grossly normal except: noted in the left leg: pain, tenderness, lateral hip, ROM: intact in all extremities, Circulation is intact in all extremities. Sensation intact. Vital Signs: 01:11 BP 161 / 84; Pulse 74; Resp 18; Temp 97.5(TE); Pulse Ox 93% on R/A; Weight 68.95 kg; lp1 Height 5 ft. 10 in. (177.80 cm); 02:00 BP 156 / 90; Pulse 79; Resp 18; Pulse Ox 95% on R/A; lp1 01:11 Body Mass Index 21.81 (68.95 kg, 177.80 cm) lp1 Reading Coma Score: 01:12 Eye Response: spontaneous(4). Verbal Response: confused(4). Motor Response: obeys lp1 commands(6). Total: 14. 01:12 Patient has hx of dementia lp1 MDM: 01:06 Patient medically screened. 8 02:12 Data reviewed: vital signs, nurses notes, lab test result(s), EKG, radiologic studies, [facility] CT scan, plain films, and as a result, I will admit patient. Data interpreted: Pulse oximetry: on room air is 93 %. Interpretation: acceptable. Counseling: I had a detailed discussion with the patient and/or guardian regarding: the historical points, exam findings, and any diagnostic results supporting the discharge/admit diagnosis, lab results, radiology results, the need for further work-up and treatment in the hospital. 02:23 Physician consultation: Willy Andrade MD was called at 02:23, was contacted at 02:23, jr8 regarding admission, to the medical/surgical unit. consult, patient's condition, and will see patient. 02/06 02:15 Order name: CBC with Diff [facility] 02/06 02:15 Order name: Basic Metabolic Panel [facility] 02/06 01:13 Order name: XRAY Pelvis [facility] 02/06 01:13 Order name: XRAY Hip LEFT 2 view [facility] 02/06 01:14 Order name: CT Head Brain wo Cont [facility] 02/06 02:20 Order name: CONS Physician Consult [facility] 02/06 02:15 Order name: EKG - Nurse/Tech; Complete Time: 02:54 jr8 Administered Medications: No medications were administered Disposition: 05:25 Co-signature as Attending Physician, Matthew Calloway MD. pklinda Disposition: 02/06/18 02:16 Hospitalization ordered by Willy Andrade for Inpatient Admission. Preliminary diagnosis is Displaced fracture of base of neck of left femur. - Bed requested for Telemetry/MedSurg (Inpatient). - Status is Inpatient Admission. cc3 - Condition is Stable. - Problem is new. - Symptoms are unchanged. UTI on Admission? No Signatures: Dispatcher [employer] [facility] Gabby Smalls RN Matthew Batista MD MD pkl Shahana Rios RN RN lp1 Jonathon Kaur PA PA jr8 Lexy Benjamin cc3 Corrections: (The following items were deleted from the chart) 02:26 02:16 Hospitalization Ordered by Willy Andrade MD for Inpatient Admission. Preliminary diagnosis is Displaced fracture of base of neck of left femur. Bed requested for Telemetry/MedSurg (Inpatient). Status is Inpatient Admission. Condition is Stable. Problem is new. Symptoms are unchanged. UTI on Admission? No. jr8 03:09 02:26 02/06/2018 02:16 Hospitalization Ordered by Willy Andrade MD for Inpatient cc3 Admission. Preliminary diagnosis is Displaced fracture of base of neck of left femur. Bed requested for Telemetry/MedSurg (Inpatient). Status is Inpatient Admission. Condition is Stable. Problem is new. Symptoms are unchanged. UTI on Admission? No. mw
[2018-02-06 02:52] LABS: Absolute Lymphocytes (CBC) 1.1 K/uL (0.7-4.9); Absolute Monocytes 1.2 K/uL (0.1-1.3); Absolute Neutrophil 12.1 K/uL (1.8-8.0); Basophils % 0.2 % (0-1.3); Eosinophils % 1.1 % (0-4.4); Hematocrit 36.9 % (39.6-49.0); Lymphocytes % 7.5 % (15.3-44.8); MCH 30.2 pg (27.0-35.0); MCV 90.1 fL (80-100); MPV 7.8 fL (7.6-11.3); Monocytes % 8.3 % (3.3-12.3)
[2018-02-06 03:11] LABS: Potassium 3.7 mmol/L (3.5-5.1)
[2018-02-06] MEDS ORDERED: ONDANSETRON 4 MG/2 ML VIAL IV PRN (03:25)
[2018-02-06 04:12] VITALS: BMI 20.7
[2018-02-06] MEDS: NA CHLORIDE 0.9% 1,000 ML IV SCH ×2 (04:13→20:43)
[2018-02-06] MEDS: MORPHINE 2 MG/ML SYR IV PRN (05:53)
--- NOTE | 2018-02-06 08:19 | RAD REPORT ---
EXAM DESCRIPTION: CT - Head Brain Wo Cont - 02/06/2018 5:42 am CLINICAL HISTORY: TRAUMA Fall, head injury. COMPARISON: No comparisons TECHNIQUE: All CT scans are performed using dose optimization technique as appropriate and may inclu de automated exposure control or mA/KV adjustment according to patient size. FINDINGS: No intracranial hemorrhage, hydrocephalus or extra-axial fluid collection.Moderate general ized brain atrophy is present with moderate periventricular and deep white matter chronic microvascul ar ischemic changes.No areas of brain edema or evidence of midline shift. The paranasal sinuses and mastoids are clear. The calvarium is intact. IMPRESSION: No acute intracranial abnormality.
--- NOTE | 2018-02-06 08:30 | RAD REPORT ---
EXAM DESCRIPTION: RAD - Hip Left 2 View - 02/06/2018 3:05 am CLINICAL HISTORY: PAIN Fall, pain COMPARISON: No comparisonsNone FINDINGS: AP pelvis and left hip, two views are submitted. Subcapital fracture of the left femoral neck is present with varus angulation. No dislocation is evid ent. No aggressive marrow lesion.
[2018-02-06] MEDS: PIMAVANSERIN TARTRATE 17 MG PO SCH ×2 (09:00→20:42)
[2018-02-06] MEDS: CARBIDOPA/LEVODOPA 25/100 TAB PO SCH ×3 (09:48→20:42)
[2018-02-06] MEDS: CETIRIZINE HCL 5 MG TABLET PO SCH (09:48)
[2018-02-06] MEDS: PANTOPRAZOLE 40MG TABLET PO SCH ×2 (09:48→20:42)
[2018-02-06] MEDS: METOPROLOL TAR 25 MG TAB PO SCH ×2 (09:49→20:41)
--- NOTE | 2018-02-06 11:55 | RAD REPORT ---
EXAM DESCRIPTION: RAD - Pelvis - 02/06/2018 3:04 am CLINICAL HISTORY: PAIN Fall, pain COMPARISON: No comparisons None FINDINGS: AP pelvis and left hip, two views are submitted. Subcapital fracture of the left femoral neck is present with varus angulation. No dislocation is evid ent. No aggressive marrow lesion.
--- NOTE | 2018-02-06 12:20 | EKG ---
Test Date: 2018-02-06 Test Time: 02:46:36 Sweep Press Operator: MAIN MEASUREMENT RESULTS: Intervals: Rate: 85 MN: 130 QRSD: 74 QT: 370 QTc: 440 [place]: P: 33 MN: 130 QRS: 4 T: 5 INTERPRETIVE STATEMENTS: Normal sinus rhythm Normal ECG Compared to ECG 08/24/2017 12:53:54 Sinus bradycardia no longer present Electronically Signed On 02-06-18 12:19:01 CDT by Ravinder Rosas
[2018-02-06] MEDS: TRAZODONE 50 MG TABLET PO SCH (20:41)
--- NOTE | 2018-02-07 03:56 | HP ---
Date of Admission: 02/06/2018 Chief Complaint: Fall. History Of Present Illness: A 77-year-old [facility] the [facility] and was bro ught to the emergency room. The patient had a CAT scan of the head and neck as well as x-rays of the pelvis and hip. He had no evidence of head injury, however, he has evidence of fractured left hip. The patient is admitted. There was no history of seizures or other symptoms prior to the fall. Past Medical History: Includes history of severe advanced Alzheimer disease, Parkinson disease, hype rtension, chronic constipation, and acid reflux disease. Other problems include history of prostate cancer. Past Surgical History: Positive for gallbladder surgery and bowel resection. Review of Systems: There is no history of fever, chills, rigors, or other systemic symptoms prior to the fall. Physical Examination: General: Revealed a 77-year-old male, confused and not responding to verbal stimuli. HEENT: No evidence of head injury. Neck: Nontender. Chest: Clear. Heart: Regular. Abdomen: Soft. EXTREMITIES: Tender hip noted on the left side. Laboratory Data: White count 14.6, hemoglobin 12.4. Chem profile; BUN 19, otherwise negative. X-ray of the hip, subcapital fracture, left hip. Assessment: 1.Fractured left hip secondary to fall. 2.Advanced Alzheimer disease. 3.Parkinson disease. 4.Hypertension. 5.History of prostate cancer. Plan: The patient has altered mentation, however, this is a chronic finding. The patient, however, will be having a Cardiology clearance as requested by orthopedic on-call. If he is released for surg jean carlos, he will have surgery tomorrow. CARINA/LANCE Voice ID: [id number]
[2018-02-07 04:28] LABS: Absolute Lymphocytes (CBC) 1.7 K/uL (0.7-4.9); Absolute Monocytes 1.2 K/uL (0.1-1.3); Absolute Neutrophil 6.3 K/uL (1.8-8.0); Basophils % 0.3 % (0-1.3); Eosinophils % 7.6 % (0-4.4); Hematocrit 34.5 % (39.6-49.0); Lymphocytes % 16.6 % (15.3-44.8); MCH 30.9 pg (27.0-35.0); MCV 89.5 fL (80-100); MPV 8.1 fL (7.6-11.3); Monocytes % 11.7 % (3.3-12.3); RBC Red Blood Cell Count 3.86 M/uL (4.33-5.43)
[2018-02-07 04:38] LABS: Potassium 3.8 mmol/L (3.5-5.1)
--- NOTE | 2018-02-07 05:05 | CON ---
Date of Consultation: 02/06/2018 History Of Present Illness: I have seen this patient in the past, however, not for this particular lupe ramírez. Unfortunately, he apparently fell injuring his left lower extremity. He was seen and examin ed in the emergency department where x-rays were taken which demonstrated a slightly displaced femora l neck fracture on the left. Physical Examination: He is not really able to interact. However, his family was there as well as his caregiver and they w ere able to give all history and x-rays reveal that he does have a displaced femoral neck fracture. Discussion: I have discussed operative and nonoperative methods of managing this with the family. T yesseniay state they understand things as presented and opt for operative intervention. Also discussed the possibility of reduction and screw fixation versus total hip arthroplasty versus bipolar hemiarthrop lasty. At this time, bipolar hemiarthroplasty was selected. I have, at this time, also spoke with Gregg Andrade who said he has some Parkinson's as well as blood pressure difficulties. However, he will o rder a Cardiology consult. We will, at this time, plan for operative intervention tomorrow. Risks, benefits, and alternatives of these procedures have been discussed with the family. They state they understand things as presented and wishes to proceed. /LANCE Voice ID: [id number] Report ID: [id number]
[2018-02-07] MEDS: CETIRIZINE HCL 5 MG TABLET PO SCH (09:00)
[2018-02-07] MEDS: PIMAVANSERIN TARTRATE 17 MG PO SCH ×2 (09:00→21:00)
[2018-02-07] MEDS: CARBIDOPA/LEVODOPA 25/100 TAB PO SCH ×3 (09:00→21:04)
[2018-02-07] MEDS: PANTOPRAZOLE 40MG TABLET PO SCH ×3 (09:00→23:05)
[2018-02-07] MEDS: METOPROLOL TAR 25 MG TAB PO SCH ×2 (09:43→21:05)
[2018-02-07] MEDS ORDERED: Ringers Lactate 1,000 ML IV ONE (10:14)
[2018-02-07] MEDS ORDERED: TRANEXAMIC ACID 1,000 MG in NA CHLORIDE 0.9% 50 ML IV SCH (10:30)
[2018-02-07] MEDS ORDERED: CLINDAMYCIN INJ 900 MG in NA CHLORIDE 0.9% 50 ML IV ONE (10:30)
[2018-02-07] MEDS ORDERED: PROPOFOL 200 MG/20 ML VIAL IV ONE (10:31)
[2018-02-07] MEDS ORDERED: FENTANYL CITR 100 MCG/2 ML ONE (10:32)
[2018-02-07] MEDS ORDERED: ROCURONIUM 50 MG/5 ML VIAL IV ONE (10:32)
[2018-02-07] MEDS ORDERED: MIDAZOLAM HCL 2 MG/2 ML INJ ONE (10:32)
[2018-02-07] MEDS ORDERED: ONDANSETRON HCL 40 MG/20 ML VIAL ONE (10:33)
[2018-02-07] MEDS ORDERED: EPHEDRINE SULF 50 MG/10 ML SYR ONE (11:08)
[2018-02-07] MEDS ORDERED: NA CHLORIDE 0.9% 1,000 ML ONE (12:26)
[2018-02-07] MEDS ORDERED: Phenylephrine HCl 10 MG/ML 1 ML VIAL ONE (12:39)
--- NOTE | 2018-02-07 13:02 | P.BOP ---
Preoperative diagnosis: left femoral neck fracture Postoperative diagnosis: same Primary procedure: left hip bipolar hemiarthoplasty Estimated blood loss: 250 ccs Anesthesia: General Complications: None Transferred to: Recovery Room Condition: Good
[2018-02-07] MEDS ORDERED: MEPERIDINE HCL 50 MG/ML AMP ONE (13:26)
[2018-02-07] MEDS: MORPHINE 2 MG/ML SYR IV PRN (15:37)
[2018-02-07] MEDS ORDERED: ZIPRASIDONE MESYLA 20 MG/VIAL IM PRN (17:40)
[2018-02-07] MEDS ORDERED: WATER FOR INJ,STERILE 10 ML IM PRN (17:40)
[2018-02-07] MEDS: NA CHLORIDE 0.9% 1,000 ML IV SCH (18:09)
[2018-02-07] MEDS: CLINDAMYCIN INJ 900 MG in NA CHLORIDE 0.9% 50 ML IV SCH (18:33)
[2018-02-07] MEDS: TRAZODONE 50 MG TABLET PO SCH (21:09)
[2018-02-07] MEDS: Meropenem 1,000 MG in NA CHLORIDE 0.9% 100 ML IV SCH (23:00)
--- NOTE | 2018-02-07 23:31 | OP ---
Date of Procedure: 02/07/2018 Surgeon: Fazal Santos MD Preoperative Diagnosis: Left hip displaced femoral neck fracture. Postoperative Diagnosis: Left hip displaced femoral neck fracture. Procedure: Left hip bipolar hemiarthroplasty using the Biomet fracture stem system. Estimated Blood Loss: 250 cc. Complications: There were no complications. Indications For Operation: Mr. Sandhu is a patient who unfortunately suffers from fairly signifi cant Parkinson's, dementia, as well as low blood pressure, who unfortunately fell injuring his left l ower extremity. He was seen and examined in the emergency department where he was ruled out for othe r injuries. However, x-rays demonstrated a displaced left femoral neck fracture. All risks, benefit s, and alternatives have been discussed with the patient and family. The patient is not really able to respond, however, family states he understands things presented and agree to proceed with bipolar hemiarthroplasty when other options were discussed including nonoperative management or internal fixa tion. Procedure In Detail: The patient taken to the operating room, placed in supine position. General an esthesia was obtained by staff. Following this, he was then transferred to the operative table where axillary roll was placed. He was then properly positioned using hip positioners. His left lower ex tremity was then prepped and draped in usual sterile fashion for arthroplasty. He does have slight h ip flexion contracture and positioning is a little difficult. However, a standard posterolateral inc ision was taken down carefully through skin and soft tissues. Meticulous hemostasis being maintained using Bovie electrocautery. This was taken down carefully through skin and soft tissues until the f ascia was encountered. A small stab wound was made in the fascia. Gluteal tendon was palpated to en sure that this is the correct level. The incision was then brought up until the fibers of gluteus ma ximus were encountered. These were then gently spread using finger pressure. There was found to be quite a bit of tenacious bursa which is gently and carefully excised using combination of Bovie to al low for visualization of structures. A hook retractor was then placed under the abductors and the ex ternal rotators and capsule were then taken down carefully and tied for later repair. Great care was taken to protect the sciatic nerve. After this, the fracture was easily seen. It is more or less v ertical fracture with the bottom of the neck being fairly short. A standard cut was then made. Any remnants of the femoral neck were removed. This was followed by removal of the femoral head which wa s sized using ring gauges. Any debris within the acetabulum was then carefully cleared. Attention w as then turned to the lateral aspect of the femur, which was lateralized using a box shook patcher. This wa s followed by canal finding reamer and cylindrical reamers up to a size 16. The 17 did not quite pas s. The broaches were then used up to a size 15. It is possible we could have gotten a slightly larg er broach in, however, the stem which is available in odd sizes, therefore decision was made to move forward with a 13 size stem. The femoral canal was then copiously irrigated using femoral tip jet la vage until it runs completely clear. The bone plug was placed to appropriate depth. Third generatio n cementation technique was then used to place the size 13 Biomet fracture stem at appropriate depth. It was then held in proper version until the cement was hardened. It was then trialed with a stand catherine head, which was relocated with some difficulty. Appears to be stable to full flexion, full adduc tion and internal rotation to at least 30 to 35 degrees. It was decided that this would be appropria te. There was an attempt to trial a +3, however, this was unable to be reduced because the patient's stiffness and probable increasing length should be noted that was the standard. He did not have any lateral or distal shut. The final ball was then gently tapped on without difficulty and was then re duced into the hip after making sure there were no obstructions in the acetabulum. Following this, t he external rotators and capsule were then repaired back to the trochanter via bone tunnels. This wa s done meticulously and irrigation was used. Following this, the fascia was then closed in a waterti ght fashion using heavy Vicryl sutures, was then irrigated, followed by closure of the skin using int errupted 2-0 Vicryl sutures, followed by bruce. The patient was then placed in Aquacel dressing as well as an abduction pillow, awakened, and taken to recovery room in good condition. There were no complications. /LANCE Voice ID: [id number] Report ID: [id number]
[2018-02-08] MEDS: CLINDAMYCIN INJ 900 MG in NA CHLORIDE 0.9% 50 ML IV SCH (01:47)
[2018-02-08] MEDS: MORPHINE 2 MG/ML SYR IV PRN ×2 (01:47→06:36)
--- NOTE | 2018-02-08 02:56 | PN ---
The patient was seen by me postoperatively. He was stable, however, according to the nurse, the noreen ent had a generalized movement. I am not sure whether he had a mini seizure. However, the patient r eceived Geodon. This will be discontinued to see whether that was the cause of his shakiness. Other possibility is whether he had any bacteremia. The patient will have a neurologic consultation and C BC will be done tomorrow. CARINA/LANCE Voice ID: [id number] Report ID: [id number]
[2018-02-08 04:42] LABS: Absolute Monocytes 1.2 K/uL (0.1-1.3); Absolute Neutrophil 7.1 K/uL (1.8-8.0); Basophils % 0.2 % (0-1.3); Eosinophils % 1.3 % (0-4.4); Lymphocytes % 10.5 % (15.3-44.8); MCH 30.4 pg (27.0-35.0); MCV 89.3 fL (80-100); MPV 8.2 fL (7.6-11.3); Monocytes % 12.9 % (3.3-12.3); RBC Red Blood Cell Count 3.25 M/uL (4.33-5.43)
--- NOTE | 2018-02-08 06:12 | CON ---
Reason For Consultation: Left femoral neck fracture. History Of Present Illness: I have seen the patient for cardiac clearance. The patient is a 77-year -old white male, has no previous cardiac history. He has a history of gastroesophageal reflux diseas e, parkinsonism, dementia, hypertension, and prostate cancer. Came in with a left femoral neck fract ure. He is not having any cardiac symptoms. He remains slightly hypertensive at 190/95, pressure no w is 160/84. He is in sinus rhythm. Past Medical History: As stated above. Allergies: PENICILLIN. Review of Systems: Negative. Social History: Negative. Family History: Negative. Medications: At home include Sinemet, finasteride, and metoprolol. Physical Examination: General: He was in moderate pain, slightly lethargic. Vital Signs: Blood pressure 160/84. HEENT: Negative. Neck: Supple with no bruit, JVD, or thyromegaly. Chest: Clear to auscultation and percussion. Cardiac: Reveals regular rhythm and rate with S4 gallops. No murmurs or rubs. Abdomen: Benign. Extremities: Reveal no edema. Diagnostic Data: Within normal limits. EKG was normal. He had an echocardiogram in August of 2017 t hat was normal. Impression And Plan: The patient is with hypertension, normal echocardiogram, normal EKG, no cardiac symptoms, normal rhythm, normal telemetry, and no clinical findings of coronary artery disease or co ngestive heart failure. I think he is at low risk to undergo his hip surgery. I will be available f or questions if the need arise. SHAD/LANCE Voice ID: [id number] Report ID: [id number]
[2018-02-08] MEDS: PIMAVANSERIN TARTRATE 17 MG PO SCH ×2 (09:00→21:00)
[2018-02-08] MEDS ORDERED: ZIPRASIDONE 20 MG CAP PO SCH (09:00)
[2018-02-08] MEDS: METOPROLOL TAR 25 MG TAB PO SCH ×2 (10:17→21:00)
[2018-02-08] MEDS: FINASTERIDE 5 MG TAB PO SCH (10:18)
[2018-02-08] MEDS: PANTOPRAZOLE 40MG TABLET PO SCH ×2 (10:18→21:19)
[2018-02-08] MEDS: CETIRIZINE HCL 5 MG TABLET PO SCH (10:18)
[2018-02-08] MEDS: ACETAMINOPHEN 500 MG TAB PO PRN ×3 (10:18→21:43)
[2018-02-08] MEDS: CARBIDOPA/LEVODOPA 25/100 TAB PO SCH ×3 (10:21→21:19)
[2018-02-08] MEDS ORDERED: NA CHLORIDE 0.9% 100 ML IV ONE (12:41)
[2018-02-08] MEDS: NA CHLORIDE 0.9% 1,000 ML IV SCH ×3 (12:43→21:18)
[2018-02-08 13:58] LABS: Absolute Lymphocytes (CBC) 1.1 K/uL (0.7-4.9); Absolute Monocytes 1.1 K/uL (0.1-1.3); Absolute Neutrophil 7.5 K/uL (1.8-8.0); Basophils % 0.2 % (0-1.3); Eosinophils % 1.1 % (0-4.4); Hematocrit 30.4 % (39.6-49.0); Lymphocytes % 11.5 % (15.3-44.8); MCH 30.1 pg (27.0-35.0); MCV 89.3 fL (80-100); MPV 8.2 fL (7.6-11.3); Monocytes % 11.5 % (3.3-12.3)
[2018-02-08] MEDS: ENOXAPARIN 30 MG/0.3 ML SQ SCH (16:08)
--- NOTE | 2018-02-08 18:36 | RAD REPORT ---
EXAM DESCRIPTION: [place] Single View02/08/2018 6:31 pm CLINICAL HISTORY: Chest pain COMPARISON: September 2017 FINDINGS: A consolidation is present within the right lung base. Mild left basilar lung opacities ar e suspected. The heart is mildly enlarged IMPRESSION: Right lung consolidation consistent with pneumonia. This be followed until it has cleare d to help exclude a post obstructive process/underlying mass Mild left basilar pneumonia is suspected
[2018-02-08] MEDS: VANCOMYCIN 1.25 GM in NA CHLORIDE 0.9% 250 ML IVPB SCH (21:16)
[2018-02-08] MEDS: TRAZODONE 50 MG TABLET PO SCH (21:19)
[2018-02-09] MEDS ORDERED: Meropenem 1 GM/100 ML BAG ONE (00:04)
--- NOTE | 2018-02-09 00:42 | PN ---
The patient has multiple issues today. He has been running fever up to 102. The patient received cl indamycin, however, because of continued fever. The patient will be started on vancomycin and merope nem. Urine cultures and blood cultures were ordered last night. In addition, the patient also had e pisode of hypotension with improvement with IV fluids. The patient also has elevated troponin, possi silvia indicating severe ischemia or non-ST PA. Dr. Rosas was notified about this finding. The patie nt has been made DNR by the son who has power of apprenticeship consultant. In view of this, he will be continued wit h supportive care including antibiotic, IV fluids, and other measures suggested by Cardiology Service . CARINA/LANCE Voice ID: [id number] Report ID: [id number]
[2018-02-09] MEDS: Meropenem 1,000 MG in NA CHLORIDE 0.9% 100 ML IV SCH ×3 (01:00→17:05)
[2018-02-09] MEDS ORDERED: NA CHLORIDE 0.9% 100 ML ONE (02:14)
--- NOTE | 2018-02-09 07:36 | EKG ---
Test Date: 2018-02-08 Test Time: 13:51:46 Oil Analyst: SUNG MEASUREMENT RESULTS: Intervals: Rate: 104 MN: 126 QRSD: 80 QT: 340 QTc: 447 [place]: P: 41 MN: 126 QRS: 22 T: 10 INTERPRETIVE STATEMENTS: Sinus tachycardia Nonspecific ST and T wave abnormality Abnormal ECG Compared to ECG 02/06/2018 02:46:36 ST (T wave) deviation now present Sinus rhythm no longer present Electronically Signed On 02-09-18 07:34:19 CDT by Ravinder Rosas
[2018-02-09] MEDS: METOPROLOL TAR 25 MG TAB PO SCH ×2 (09:00→21:39)
[2018-02-09] MEDS: CETIRIZINE HCL 5 MG TABLET PO SCH (10:04)
[2018-02-09] MEDS: CARBIDOPA/LEVODOPA 25/100 TAB PO SCH ×3 (10:04→21:45)
[2018-02-09] MEDS: PIMAVANSERIN TARTRATE 17 MG PO SCH ×2 (10:04→21:42)
[2018-02-09] MEDS: FINASTERIDE 5 MG TAB PO SCH (10:04)
[2018-02-09] MEDS: PANTOPRAZOLE 40MG TABLET PO SCH (10:04)
[2018-02-09] MEDS: NA CHLORIDE 0.9% 1,000 ML IV SCH ×2 (10:05→15:00)
[2018-02-09] MEDS: ACETAMINOPHEN 500 MG TAB PO PRN (15:35)
[2018-02-09] MEDS: VANCOMYCIN 1.25 GM in NA CHLORIDE 0.9% 250 ML IVPB SCH (15:37)
[2018-02-09] MEDS: ENOXAPARIN 30 MG/0.3 ML SQ SCH (17:05)
--- NOTE | 2018-02-09 17:40 | CON ---
Reason For Consultation: Consultation called because of the tremors. History Of Present Illness: Mr. 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 He came to [facility] on the 06 of February after sustaining a fall on the 05 of February while at the assisted living facility, [facility]. Prior to this fall, the patient would come to clinic and each time he comes, his son akosua nelson bring him and report he has had multiple falls between clinic visits as he continued to be impulsiv e, lacked safety awareness and would not use an appropriate assistive device. After this current fal l, he developed pain in the left side and was unable to fully bear weight on the left leg, and he was brought in the following day, where hip x-ray was done that identified a subcapital fracture of the left femoral neck with varus angulation. He was evaluated by the Orthopedic Service, Dr. Santos, and determined that he required surgical intervention after risks, benefits explained to the patient and he was cleared for surgery by the hospitalist. He had surgery on the 07 of February where a le ft bipolar hemiarthroplasty was performed of the left femoral neck fracture. After the patient came out of surgery and after he had his medications stopped, which did include Sinemet, he was noted to h ave more tremors, more near continuous semi-purposeful movements of the arms, where he would grab on to nearby objects like his sheets or the bed rails and keep manipulating and tugging and pulling at t hings and not following instructions appropriately, which he was already prone to do. When the patie nt was evaluated, the patient's son was at bedside and this activity was noted to be near continuous where he would hold onto the bed sheets and covers and pull and tug and rub his fingers and hands tog ether and momentarily this activity could be interrupted by calling the patient's name where he would briefly attend then he would go back into this activity. He did not have any tonic clonic appearing activity. No tongue biting or loss of bowel or bladder control with this, and no eversion or stiff twisting of his head or stiff extension of his extremities. The patient did have a head CT scan on admission that showed no acute intracranial abnormalities. Wv s electrocardiogram showed sinus tachycardia and nonspecific changes and his chest x-ray showed right lung consolidation consistent with a pneumonia, and this is suspected as a mild left basilar pneumon ia. Past Medical History: As indicated with Parkinson disease with psychosis and dementia. In addition, chronic constipation, gastroesophageal reflux, and hypertension. Surgical History: All bladder and bowel resection. Family History: Noncontributory. Medications: Sinemet 25/100 three times daily, Zyrtec 10 mg daily, Lovenox 30 mg subcutaneously shikha y, Proscar 5 mg daily. He is on meropenem for his infection 1000 mg every 8 hours, Lopressor 25 mg t wice daily, Protonix 40 mg daily, trazodone for sleep 100 mg at night, and he did receive vancomycin for infection. Review of Systems: Unable to perform a reliable review of systems as the patient is not answering questions with an inte lligible communication. Physical Examination: Vital Signs: Blood pressure 132/63, pulse 81, respiratory rate 18, temperature 98.5, oxygen saturati on 96%. Weight 145 pounds, height 5 feet 10 inches, BMI 28.8. General: Mr. Sandhu is normocephalic, atraumatic. Sclerae anicteric. Oropharynx is moist and p ink. Neck: Supple. Chest: Clear. Heart: Regular. He does have some mild postoperative swelling in the left lower extremity, otherwis e no edema. Neurologic: He is alert. He does respond transiently to calling his name. He would look and may no d rarely to questions, but otherwise continues with semi-purposeful movement reaching and pulling on the bed sheets and covers using both hands equally and manipulating his hand 1 or the other. Otherwi se, cranial nerves show no focal deficits that are obvious on 2 through 12. On motor examination, he has paratonia. He has a grasp reflex and he has increased tone in the upper and lower extremities. It should be noted that he does not have an obvious ongoing parkinsonian tremor at this time, and pl ease note his face does have a masklike appearance. On his lower extremities, he had an increased to ne with some favoring of the left hip, where he recently had hip surgery. Unable to fully assess channel marketing coordinator rdination and his gait as well. Laboratory Studies: White blood cell count 9.9, hemoglobin 10.3, hematocrit 30.4, platelets 153. Ch emistries; sodium 140, potassium 3.8, chloride 108, carbon dioxide 26, BUN 17, creatinine 0.9. His t roponin 1 3.37 and it was yesterday. Assessment: Mr. Sandhu is a 77-year-old patient with advanced Parkinson disease and dementia aliviadennis fajardo with psychosis, who has left hip fracture and is status post surgical repair. He has comorbid hyp ertension, gastroesophageal reflux disease. Also has an apparent ongoing infection for which he is t reated with multiple antibiotics. The patient's movements are not likely to be seizures, but related to his Parkinson's and dementia with sensory deprivation, likely contributed to by a neuropathy. Th e semipurposeful movements are again not likely related to the tremor or significant exacerbation of Parkinson disease, but likely a combination of his recent surgery, infection, and being in the hospit al and being off the Sinemet. Plan: 1.Make sure he continues on Sinemet 25/100 three times daily, also may use Geodon for any psychotic- type features as needed. 2.Continue with all of the medications as indicated including for infection and DVT prophylaxis william g with medications for insomnia as needed. ZAYRA/LANCE Voice ID: [id number] Report ID: [id number]
--- NOTE | 2018-02-09 21:34 | PN ---
The patient is doing better today. His blood pressure is normal. He is fully alert and is able to e at. I spoke to the son regarding his care and he wants to continue supportive care and continue with present management. The patient will be continued on IV antibiotic at least for another 24 hours. A repeat chest x-ray will be done tomorrow. CARINA/LANCE Voice ID: [id number] Report ID: [id number]
[2018-02-09] MEDS: TRAZODONE 50 MG TABLET PO SCH (21:39)
[2018-02-10] MEDS: Meropenem 1,000 MG in NA CHLORIDE 0.9% 100 ML IV SCH ×3 (01:06→16:09)
[2018-02-10] MEDS: NA CHLORIDE 0.9% 1,000 ML IV SCH ×2 (01:09→05:53)
[2018-02-10 08:24] LABS: Absolute Monocytes 0.6 K/uL (0.1-1.3); Absolute Neutrophil 5.5 K/uL (1.8-8.0); Basophils % 0.2 % (0-1.3); Eosinophils % 5.1 % (0-4.4); Hematocrit 25.8 % (39.6-49.0); Lymphocytes % 13.2 % (15.3-44.8); MCH 30.8 pg (27.0-35.0); MCV 89.8 fL (80-100); MPV 8.2 fL (7.6-11.3); Monocytes % 7.7 % (3.3-12.3); RBC Red Blood Cell Count 2.87 M/uL (4.33-5.43)
[2018-02-10] MEDS: METOPROLOL TAR 25 MG TAB PO SCH ×2 (09:00→21:02)
[2018-02-10] MEDS: PIMAVANSERIN TARTRATE 17 MG PO SCH ×2 (09:11→21:01)
[2018-02-10] MEDS: FINASTERIDE 5 MG TAB PO SCH (09:12)
[2018-02-10] MEDS: CETIRIZINE HCL 5 MG TABLET PO SCH (09:12)
[2018-02-10] MEDS: CARBIDOPA/LEVODOPA 25/100 TAB PO SCH ×3 (09:12→21:03)
[2018-02-10] MEDS: PANTOPRAZOLE 40MG TABLET PO SCH ×2 (09:12→21:02)
[2018-02-10] MEDS: VANCOMYCIN 1.25 GM in NA CHLORIDE 0.9% 250 ML IVPB SCH (09:13)
[2018-02-10] MEDS: ACETAMINOPHEN 500 MG TAB PO PRN (14:35)
[2018-02-10] MEDS: ENOXAPARIN 30 MG/0.3 ML SQ SCH (16:09)
[2018-02-10] MEDS: TRAZODONE 50 MG TABLET PO SCH (21:04)
--- NOTE | 2018-02-11 01:20 | PN ---
The patient is generally doing better. He is more alert, eating adequately. He is afebrile. His forrest ngs have less wheezing. I will repeat chest x-ray in a.m. CARINA/LANCE Voice ID: [id number] Report ID: [id number]
[2018-02-11] MEDS: Meropenem 1,000 MG in NA CHLORIDE 0.9% 100 ML IV SCH ×3 (01:50→17:26)
[2018-02-11] MEDS: NA CHLORIDE 0.9% 1,000 ML IV SCH (01:51)
[2018-02-11] MEDS: VANCOMYCIN 1.25 GM in NA CHLORIDE 0.9% 250 ML IVPB SCH ×2 (04:00→21:34)
[2018-02-11 06:23] LABS: Absolute Lymphocytes (CBC) 1.3 K/uL (0.7-4.9); Absolute Monocytes 0.6 K/uL (0.1-1.3); Absolute Neutrophil 4.8 K/uL (1.8-8.0); Basophils % 0.4 % (0-1.3); Eosinophils % 7.2 % (0-4.4); Hematocrit 26.1 % (39.6-49.0); Lymphocytes % 17.5 % (15.3-44.8); MCH 30.4 pg (27.0-35.0); MCV 88.8 fL (80-100); MPV 8.5 fL (7.6-11.3); Monocytes % 8.2 % (3.3-12.3); RBC Red Blood Cell Count 2.94 M/uL (4.33-5.43)
[2018-02-11] MEDS: ACETAMINOPHEN 500 MG TAB PO PRN (08:58)
[2018-02-11] MEDS: CETIRIZINE HCL 5 MG TABLET PO SCH (08:58)
[2018-02-11] MEDS: PANTOPRAZOLE 40MG TABLET PO SCH ×2 (08:59→20:49)
[2018-02-11] MEDS: PIMAVANSERIN TARTRATE 17 MG PO SCH ×2 (08:59→20:50)
[2018-02-11] MEDS: FINASTERIDE 5 MG TAB PO SCH (08:59)
[2018-02-11] MEDS: CARBIDOPA/LEVODOPA 25/100 TAB PO SCH ×3 (08:59→20:49)
[2018-02-11] MEDS: METOPROLOL TAR 25 MG TAB PO SCH ×2 (08:59→20:49)
[2018-02-11] MEDS: ENOXAPARIN 30 MG/0.3 ML SQ SCH (17:26)
[2018-02-11] MEDS: TRAZODONE 50 MG TABLET PO SCH (20:49)
--- NOTE | 2018-02-12 01:19 | PN ---
The patient is very alert and he is able to eat adequately. The patient has been on IV antibiotics. If he remains afebrile, he will be changed to oral antibiotics in a.m. Discharge planning also was discussed with his son. Very likely he will have home health with [facility]. CARINA/LANCE Voice ID: [id number] Report ID: [id number]
[2018-02-12] MEDS: NA CHLORIDE 0.9% 1,000 ML IV SCH ×3 (01:43→23:00)
[2018-02-12] MEDS: Meropenem 1,000 MG in NA CHLORIDE 0.9% 100 ML IV SCH (01:43)
[2018-02-12 06:14] LABS: Absolute Lymphocytes (CBC) 1.2 K/uL (0.7-4.9); Absolute Monocytes 0.6 K/uL (0.1-1.3); Absolute Neutrophil 3.1 K/uL (1.8-8.0); Basophils % 0.5 % (0-1.3); Eosinophils % 8.6 % (0-4.4); Hematocrit 23.9 % (39.6-49.0); Lymphocytes % 22.8 % (15.3-44.8); MCH 30.4 pg (27.0-35.0); MCV 88.7 fL (80-100); MPV 8.3 fL (7.6-11.3)
[2018-02-12] MEDS: CETIRIZINE HCL 5 MG TABLET PO SCH (11:10)
[2018-02-12] MEDS: FINASTERIDE 5 MG TAB PO SCH (11:10)
[2018-02-12] MEDS: CARBIDOPA/LEVODOPA 25/100 TAB PO SCH ×3 (11:10→21:55)
[2018-02-12] MEDS: PIMAVANSERIN TARTRATE 17 MG PO SCH ×2 (11:11→21:54)
[2018-02-12] MEDS: levoFLOXacin 500 MG TAB PO SCH (11:11)
[2018-02-12] MEDS: PANTOPRAZOLE 40MG TABLET PO SCH ×2 (11:11→21:55)
[2018-02-12] MEDS: METOPROLOL TAR 25 MG TAB PO SCH ×2 (11:11→21:55)
[2018-02-12] MEDS: ACETAMINOPHEN 500 MG TAB PO PRN (11:15)
[2018-02-12] MEDS: ENOXAPARIN 30 MG/0.3 ML SQ SCH (17:15)
[2018-02-12] MEDS: TRAZODONE 50 MG TABLET PO SCH (21:56)
--- NOTE | 2018-02-12 22:51 | PN ---
Subjective: Mr. Sandhu is resting in bed. No obvious tremors. The patient's son is at the [facility]. He does appear to be at his baseline level of poor cognitive functioning, which is related to P arkinson disease with advanced dementia and psychosis. The patient's son said he is again at [facility] and hardly notices any new tremors as the patient had prior to his Sinemet being restarted. Objective: Vital Signs: Blood pressure 159/90, pulse of 75, respiratory rate 18, temperature 97.8, and oxygen saturation 96%. General: Mr. Sandhu follows basic commands with repeated encouragement. Neurologic: He does not appear to have any focal face, arm, or leg weakness. Does have paratonia, d oes have a grasp reflex, and very limited range of motion due to his stiffness in the arms and legs. Laboratory Studies: White blood cell count 5.5, hemoglobin 8.2, hematocrit 23.9, platelets 189. Tiffani mistries show troponin has been elevated at 3.37. He is being followed by Dr. Andrade, primary care do [facility]. Assessment: Mr. Sandhu is a 77-year-old patient with Parkinson disease and has left hip fracture and other comorbid conditions, managed by primary care physician. Once restarted on Sinemet 25/100 three times daily, his tremors have been significantly improved. Plan: 1.Continue with sinemet as indicated. 2.Continue with DVT prophylaxis as indicated. 3.Continue with all other medications as per primary team. ZAYRA/LANCE Voice ID: [id number] Report ID: [id number]
--- NOTE | 2018-02-13 00:45 | PN ---
The patient is ready for discharge. However, the required home physical therapy and other issues hav e not been resolved. As soon as this is resolved, the patient will be discharged. The patient's imelda normany was given a prescription for hospital bed in view of needed mobility and recent fracture. CARINA/LANCE Voice ID: [id number] Report ID: [id number]
[2018-02-13] MEDS: PIMAVANSERIN TARTRATE 17 MG PO SCH (09:00)
[2018-02-13] MEDS: levoFLOXacin 500 MG TAB PO SCH (10:44)
[2018-02-13] MEDS: METOPROLOL TAR 25 MG TAB PO SCH (10:44)
[2018-02-13] MEDS: FINASTERIDE 5 MG TAB PO SCH (10:45)
[2018-02-13] MEDS: CETIRIZINE HCL 5 MG TABLET PO SCH (10:45)
[2018-02-13] MEDS: PANTOPRAZOLE 40MG TABLET PO SCH (10:45)
[2018-02-13] MEDS: CARBIDOPA/LEVODOPA 25/100 TAB PO SCH (10:46)
[2018-02-13 11:12] VITALS: O2SAT 95
[2018-02-13 15:31] VITALS: BP 129/90; TEMP 97.5
== END 2018-02-13 12:55 | disposition home health service (06) | DRG 470 ==
LOC: ER 00:54 → ERHOLD 02:19 → 4TH 03:05
PROVIDERS: ADMIT Internal Medicine; ATTEND Internal Medicine
PROC: 0SRS0J9 Replacement of Left Hip Joint, Femoral Surface with Synthetic Substitute, Cemented, Open Approach (ICD-10-PCS; principal; 2018-02-07 11:30)
DX: S72.002A Fracture of unspecified part of neck of left femur, initial encounter for closed fracture (principal); G30.9 Alzheimer's disease, unspecified; F02.80 Dementia in other diseases classified elsewhere, unspecified severity, without behavioral disturbance, psychotic disturbance, mood disturbance, and anxiety; G20 Parkinson's disease; I10 Essential (primary) hypertension; K21.9 Gastro-esophageal reflux disease without esophagitis; R25.1 Tremor, unspecified; F29 Unspecified psychosis not due to a substance or known physiological condition; W19.XXXA Unspecified fall, initial encounter; Z85.46 Personal history of malignant neoplasm of prostate
CPT/HCPCS: 36415; 70450; 71045; 72170; 80048; 80202; 82962; 84484; 85025; 87040; 87086; 87088; 88305; 88307; 88311; 93005; 97163; 99285; J1650; J2175; J2185; J2250; J2270; J2370; J2405; J3010; J3486; J7030

== ENCOUNTER 2018-05-25 08:32 | Inpatient (IN) | payer OTHER, BC ==
[2018-05-25 09:01] LABS: Absolute Lymphocytes (CBC) 2.5 K/uL (0.7-4.9); Absolute Neutrophil 13.1 K/uL (1.8-8.0); Basophils % 0.1 % (0-1.3); Hematocrit 43.9 % (39.6-49.0); Lymphocytes % 15.3 % (15.3-44.8); MPV 9.4 fL (7.6-11.3); RBC Red Blood Cell Count 5.03 M/uL (4.33-5.43)
[2018-05-25 09:26] LABS: Albumin 2.8 g/dL (3.4-5.0); Bilirubin Direct 0.2 mg/dL (0-0.2); Bilirubin Total 0.6 mg/dL (0.2-1.0); Potassium 3.3 mmol/L (3.5-5.1); Protein, Total 8.5 g/dL (6.4-8.2)
[2018-05-25] MEDS ORDERED: NA CHLORIDE 0.9% 500 ML ONE (09:33)
--- NOTE | 2018-05-25 09:39 | RAD REPORT ---
EXAM DESCRIPTION: CT - Abdomen Pelvis Wo Contrast - 05/25/2018 9:19 am CLINICAL HISTORY: Abdominal pain /fever COMPARISON: None TECHNIQUE: Computed axial tomography of the abdomen and pelvis was obtained. IV and oral contrast we re not requested. All CT scans are performed using dose optimization technique as appropriate and may include automated exposure control or mA/KV adjustment according to patient size. FINDINGS: The evaluation of solid organs, vessels and bowel is limited secondary to the lack of con trast administration. Right lower lobe consolidation The liver, spleen, pancreas, adrenals and right kidney appear grossly normal. 5.3 centimeter left kenneth al cyst. Mild left upper pole pyelocaliectasis There is no evidence of diverticulitis. The rectum is distended with stool measuring 8.7 centimeters. Large amount of stool is present throug hout the colon. Soft tissue structure is present within the lower right inguinal canal which may represent testicle. This should be correlated with physical examination. IMPRESSION: Right lower lobe pneumonia Fecal impaction
[2018-05-25 09:43] LABS: Urine RBC <5 /HPF (NONE SEEN)
[2018-05-25 09:44] LABS: Urine Amorphous Sediment 2+ /HPF (NONE SEEN); Urine Bacteria 20-50 /HPF (NONE SEEN); Urine Culture Reflex Order REFLEXED
[2018-05-25 09:45] LABS: Urine Blood 1+ (NEG); Urine Glucose NEGATIVE (NEG); Urine Protein NEGATIVE (NEG)
--- NOTE | 2018-05-25 09:54 | RAD REPORT ---
EXAM DESCRIPTION: Damaris Single View05/25/2018 9:03 am CLINICAL HISTORY: Fever COMPARISON: February 2018 FINDINGS: Right lower lobe consolidation better seen on the CT scan on the same date Left lung appears clear. The heart is normal size IMPRESSION: Right lower lobe pneumonia
[2018-05-25] MEDS ORDERED: NA CHLORIDE 0.9% 1,000 ML ONE (09:59)
[2018-05-25] MEDS ORDERED: CEFTRIAXONE/SWI 1gm 1 GM/10 ML SYR ONE (10:00)
[2018-05-25] MEDS ORDERED: AZITHROMYCIN 500 MG/250 ML BAG ONE (10:00)
--- NOTE | 2018-05-25 10:04 | ER ---
Nurse's Notes [facility] Name: Kevin Sandhu Age: 78 yrs Sex: Male : 1940 Arrival Date: 05/25/2018 Time: 08:35 Bed 3 Private MD: Diagnosis: Hyperosmolality and hypernatremia;Dehydration;Fecal impaction;Right lower lobe pneumonia Presentation: 05/25 08:37 Presenting complaint: EMS states: Pt w/ fever for 2-3 days, family reports that he woke ph up altered, hx of Parkinsons, BP on scene 80/60, HR 120 sinus tach, Spo2 84% on 2 L home o2, family reported temp of 101.5, family administered 5010 mg Tylenol prior to EMS arrival,temp down to 97.8, 400 NS bolus administered ad systolic BP increased to 123, Spo2 improved to 97% on 4L NC HR improved to 113, family reports that pt was placed on antibiotics a few days ago but were unsure what it was for. Transition of care: patient was not received from another setting of care. Onset of symptoms was May 25, 2018. Risk Assessment: Do you want to hurt yourself or someone else? Patient reports no desire to harm self or others. Initial Sepsis Screen: Does the patient meet any 2 criteria? Altered Mental Status. HR > 90 bpm. Yes Does the patient have a suspected source of infection? Yes: If YES to both, name of provider notified: Valeriy Francisco MD. Care prior to arrival: Medication(s) given: Normal saline infusion, 400 mL Tylenol, 500 mg IV initiated. 22 GA, in the right forearm, Glucose check: 117 Oxygen administered. via nasal cannula. 08:37 Method Of Arrival: EMS: [facility] ph 08:37 Acuity: ERICA 2 ph Historical: - Allergies: 09:45 PENICILLINS; ph - Home Meds: 09:45 aspirin 81 mg Oral TbEC 1 tab once daily [Active]; carbidopa-levodopa 25-100 mg Oral ph tab 1 tab 3 times per day [Active]; Citrucel Fiber Laxative Oral daily [Active]; finasteride 5 mg Oral tab 1 tab once daily [Active]; Geodon 20 mg Oral cap daily [Active]; melatonin 3 mg Oral tab nightly [Active]; memantine 10 mg Oral tab 1 tab 2 times per day [Active]; metoprolol tartrate 50 mg Oral tab 0.5 tab 2 times per day [Active]; Mucinex 600 mg Oral Ta12 daily [Active]; Nuplazid 17 mg Oral tab 1 tabs twice a day [Active]; omeprazole 20 mg Oral cpDR 1 cap once daily [Active]; tramadol 50 mg Oral tab [Active]; trazodone 100 mg Oral tab nightly [Active]; Zyrtec 10 mg Oral tab 1 tab once daily [Active]; - PMHx: 09:45 Dementia; GERD; Parkinsons; Prostate Cancer; ph - PSHx: 09:45 Bowel resection; Cholecystectomy; ph - Immunization history:: Adult Immunizations unknown. - Family history:: not pertinent. - Social history:: Smoking status: Patient/guardian denies using tobacco. - Ebola Screening: : No symptoms or risks identified at this time. - Hospitalizations: : No recent hospitalization is reported. - Code Status:: DNR. Screenin:33 Abuse screen: Denies threats or abuse. Denies injuries from another. Nutritional ph screening: No deficits noted. Tuberculosis screening: No symptoms or risk factors identified. Fall Risk No fall in past 12 months (0 pts). Secondary diagnosis (15 points) impaired mobility, Parkinsons. IV access (20 points). Ambulatory Aid- None/Bed Rest/Nurse Assist (0 pts). Gait- Impaired (20 pts.). Mental Status- Overestimates/Forgets Limitations (15 pts.). Total Sparks Fall Scale indicates High Risk Score (45 or more points). Fall prevention measures have been instituted. Side Rails Up X 2 Placed Close to Nursing Station Frequent Obs/Assessments Occuring Family Present and informed to notify staff if the need to leave the bedside As available patient and family educated on Fall Prevention Program and Strategies. Assessment: 09:00 General: Appears in no apparent distress. uncomfortable, slender, well groomed, ph Behavior is drowsy, flat, quiet. Pain: Unable to use pain scale. Patient appears to be grimacing. Neuro: Level of Consciousness is awake, lethargic, Oriented to person, place, Mason Liner are equal bilaterally Facial symmetry appears normal. Cardiovascular: Capillary refill is sluggish Patient's skin is warm and dry. Rhythm is sinus tachycardia. Respiratory: Airway is patent Respiratory effort is even, unlabored, Respiratory pattern is regular, symmetrical, Breath sounds are coarse bilaterally. GI: Abdomen is flat, non-distended, Bowel sounds present X 4 quads. EENT: Eyes with exudate noted from right eye yellow crusting present. Derm: Skin is intact, is fragile, is thin, Skin is pink, warm \\T\\ dry. Musculoskeletal: Range of motion: limited in all extremities, Swelling absent. 10:00 Reassessment: Patient appears in no apparent distress at this time. No changes from previously documented assessment. Patient and/or family updated on plan of care and expected duration. Pain level reassessed. Pt resting w/ eyes closed, family at bedside states that speaks very little at baseline, states, " He brayan will mumble some things sometimes and he keeps his eyes closed a lot but this morning he just seemed slower to respond and open his eyes than he usually is. 11:06 Reassessment: Patient appears in no apparent distress at this time. Patient and/or ph family updated on plan of care and expected duration. Pain level reassessed. Pt resting w/ eyes closed, equal unlabored respirations, VSS, awaiting admit orders and room assignment, family at bedside. 12:01 Reassessment: Patient appears in no apparent distress at this time. Patient and/or ph family updated on plan of care and expected duration. Pain level reassessed. Dr Damian at bedside to speak w/ pt and caregiver. 12:42 Reassessment: Patient appears in no apparent distress at this time. Patient and/or ph family updated on plan of care and expected duration. Pain level reassessed. Attempted to call report, receiving nurse unavailable, will call back. 13:00 Reassessment: Patient appears in no apparent distress at this time. Report called to Wendi Chan RN, pt cleaned of urine and placed in clean brief, taken upstairs by instrumentation and control technician. Vital Signs: 08:43 BP 144 / 86; Pulse 115; Resp 24; Temp 98.9(A); Pulse Ox 92% on R/A; Weight 61.23 kg; ph 09:47 BP 113 / 78; Pulse 104; Resp 22; Pulse Ox 99% on 3 lpm NC; ph 10:29 BP 104 / 70; Pulse 98; Resp 20; Pulse Ox 100% on 2 lpm NC; ph 11:15 BP 90 / 73; Pulse 95; Resp 18; Pulse Ox 100% on 2 lpm NC; ph 12:27 BP 114 / 70; Pulse 93; Resp 24; Temp 99.0; Pulse Ox 100% on 2 lpm NC; ph Vitals: 09:47 Cardiac Rhythm Assessment Sinus tach. ph 10:29 Cardiac Rhythm Assessment Sinus rhythm. ph ED Course: 08:35 Patient arrived in ED. ph 08:35 Valeriy Francisco MD is Attending Physician. rn 08:43 Triage completed. ph 08:43 Initial lab(s) drawn, by me, sent to lab. Inserted saline lock: 22 gauge in left jb1 forearm, using aseptic technique. Blood collected. 09:00 Straight cath inserted, using sterile technique, 16 Fr. Specimen obtained. jb1 09:00 Urine collected: straight cath specimen, cloudy, shaina colored. jb1 09:00 Maintain EMS IV. Dressing intact. Good blood return noted. Site clean \\T\\ dry. Gauge \\T\\ ph site: 20 RFA. Patient admitted, IV remains in place. 09:02 Chest Single View XRAY In Process Unspecified. EDMS 09:04 Urine Dipstick--Ancillary (enter results) Sent. sv 09:10 Arm band placed on. ph 09:17 CT completed. Patient tolerated procedure well. Patient moved to CT via stretcher. Patient moved back from CT. 09:20 CT Abd/Pelvis - Without Cont In Process Unspecified. EDMS 09:20 Mahogany Page, RN is Primary Nurse. ph 09:26 EKG done, by arcade technician. reviewed by Valeriy Francisco MD. dt2 09:46 Patient has correct armband on for positive identification. Placed in gown. Bed in low ph position. Call light in reach. Side rails up X2. clinical research monitor on. Pulse ox on. NIBP on. Warm blanket given. Pillow given. 10:02 Mike Damian MD is Hospitalizing Provider. rn 12:28 No provider procedures requiring assistance completed. ph Administered Medications: 09:26 Drug: NS 0.9% 500 ml Route: IV; Rate: bolus; Site: right forearm; ph 10:28 Follow up: Response: No adverse reaction; IV Status: Completed infusion ph 09:50 Drug: NS 0.9% 500 ml Route: IV; Rate: bolus; Site: right forearm; ph 10:30 Follow up: Response: No adverse reaction; IV Status: Completed infusion ph 09:50 Drug: Rocephin - (cefTRIAXone) 1 grams Route: IVPB; Infused Over: 30 mins; Site: right ph forearm; 10:28 Follow up: Response: No adverse reaction; IV Status: Completed infusion ph 10:27 Drug: NS 0.9% 1000 ml Route: IV; Rate: 125 ml/hr; Site: right forearm; ph 11:30 Follow up: Response: Adverse reaction, Physician notified; IV Status: Infusion ph continued upon admission 10:28 Drug: Zithromax 500 mg Route: IVPB; Infused Over: 1 hrs; Site: right forearm; ph 11:30 Follow up: Response: No adverse reaction; IV Status: Completed infusion ph Outcome: 10:03 Decision to Hospitalize by Provider. rn 13:12 Admitted to Tele accompanied by tech, family with patient, via stretcher, room 427, ph with oxygen, with chart, Report called to Wendi Chan RN 13:12 Condition: stable 13:20 Patient left the ED. ph Signatures: Dispatcher [employer] Grabiel Sher Stephanie, Will Ignacio RN, Roman, MD MD rn Hall, Patricia, RN RN ph Teague, Danielle dt2
--- NOTE | 2018-05-25 10:05 | EDPHYS ---
Physician Documentation [facility] Name: Kevin Sanhdu Age: 78 yrs Sex: Male : 1940 Arrival Date: 05/25/2018 Time: 08:35 Bed 3 Private MD: ED Physician Valeriy Francisco HPI: 05/25 08:49 This 78 yrs old Male presents to ER via EMS with complaints of Altered Mental rn Status. 08:49 The patient presents with decreased mental status. Onset: The symptoms/episode rn began/occurred 3 day(s) ago. Possible causes: unknown. Current symptoms: In the emergency department the patient's symptoms are unchanged from the initial presentation. It is unknown whether or not the patient has had similar symptoms in the past. Sent by alf for AMS, per report, patient with fever for 2-3 days, placed on abx for "unknown infection", not improving, + cough, + agitation, no known trauma. . Historical: - Allergies: 09:45 PENICILLINS; ph - Home Meds: 09:45 aspirin 81 mg Oral TbEC 1 tab once daily [Active]; carbidopa-levodopa 25-100 mg Oral ph tab 1 tab 3 times per day [Active]; Citrucel Fiber Laxative Oral daily [Active]; finasteride 5 mg Oral tab 1 tab once daily [Active]; Geodon 20 mg Oral cap daily [Active]; melatonin 3 mg Oral tab nightly [Active]; memantine 10 mg Oral tab 1 tab 2 times per day [Active]; metoprolol tartrate 50 mg Oral tab 0.5 tab 2 times per day [Active]; Mucinex 600 mg Oral Ta12 daily [Active]; Nuplazid 17 mg Oral tab 1 tabs twice a day [Active]; omeprazole 20 mg Oral cpDR 1 cap once daily [Active]; tramadol 50 mg Oral tab [Active]; trazodone 100 mg Oral tab nightly [Active]; Zyrtec 10 mg Oral tab 1 tab once daily [Active]; - PMHx: 09:45 Dementia; GERD; Parkinsons; Prostate Cancer; ph - PSHx: 09:45 Bowel resection; Cholecystectomy; ph - Immunization history:: Adult Immunizations unknown. - Family history:: not pertinent. - Social history:: Smoking status: Patient/guardian denies using tobacco. - Ebola Screening: : No symptoms or risks identified at this time. - Hospitalizations: : No recent hospitalization is reported. - Code Status:: DNR. ROS: 08:49 Unable to obtain ROS due to altered mental status. rn Exam: 08:49 Constitutional: Thin male, agitated, fights with staff in room Head/Face: rn Normocephalic, atraumatic. Eyes: Pupils equal round and reactive to light ENT: dry MM Cardiovascular: tachycardic, regular, no murmur Respiratory: + diminished breath sounds bilaterally with mild tachypnea, no retractions, no wheezing Abdomen/GI: soft, mild diffuse tenderness, no distension, no rebound MS/ Extremity: Pulses equal, no cyanosis. + spastic bilateral upper extremities. Moves all 4 ext. Neuro: Awake, localizes to painful stimuli, moves all 4 extremities, grimaces but doesn't speak Vital Signs: 08:43 BP 144 / 86; Pulse 115; Resp 24; Temp 98.9(A); Pulse Ox 92% on R/A; Weight 61.23 kg; ph 09:47 BP 113 / 78; Pulse 104; Resp 22; Pulse Ox 99% on 3 lpm NC; ph 10:29 BP 104 / 70; Pulse 98; Resp 20; Pulse Ox 100% on 2 lpm NC; ph 11:15 BP 90 / 73; Pulse 95; Resp 18; Pulse Ox 100% on 2 lpm NC; ph 12:27 BP 114 / 70; Pulse 93; Resp 24; Temp 99.0; Pulse Ox 100% on 2 lpm NC; ph MDM: 08:35 Patient medically screened. rn 10:01 Differential Diagnosis: electrolyte abnormality, pneumonia, sepsis, UTI, volume rn depletion. Data reviewed: vital signs, nurses notes, lab test result(s), EKG, radiologic studies, CT scan, plain films, and as a result, I will admit patient. Counseling: I had a detailed discussion with the patient and/or guardian regarding: the historical points, exam findings, and any diagnostic results supporting the discharge/admit diagnosis, lab results, radiology results, the need for further work-up and treatment in the hospital. Response to treatment: the patient's symptoms have mildly improved after treatment, and as a result, I will admit patient. Admission orders: after a detailed discussion of the patient's condition and case, the admit orders are written by me. ED course: Pt with RLL pneumonia, dehydration, hypernatremia, fecal impaction likely from dehydration, admitted to Dr. Damian. . 05/25 08:36 Order name: Basic Metabolic Panel 05/25 08:36 Order name: Blood Culture Adult (2) 05/25 08:36 Order name: CBC with Diff; Complete Time: 09:28 05/25 08:36 Order name: CPK; Complete Time: 09:36 05/25 08:36 Order name: Lactate; Complete Time: 09:28 05/25 08:36 Order name: LFT's; Complete Time: 09:36 rn 05/25 08:36 Order name: Lipase; Complete Time: 09:36 05/25 08:36 Order name: Procalcitonin; Complete Time: 09:36 05/25 08:36 Order name: Urine Microscopic Only; Complete Time: 09:57 05/25 08:36 Order name: Flu; Complete Time: 09:28 05/25 08:37 Order name: Basic Metabolic Panel; Complete Time: 09:36 EDMA 05/25 09:02 Order name: Urine Dipstick--Ancillary (enter results); Complete Time: 09:57 lt 05/25 09:47 Order name: Urine Culture EDMA 05/25 12:47 Order name: Lactate Sepsis 2 HR Follow-up EDMA 05/25 08:36 Order name: Cath; Complete Time: 09:20 05/25 08:36 Order name: Chest Single View XRAY; Complete Time: 09:57 05/25 08:36 Order name: Accucheck; Complete Time: 08:44 rn 05/25 08:36 Order name: Cardiac monitoring; Complete Time: 08:44 rn 05/25 08:36 Order name: EKG - Nurse/Tech; Complete Time: 09:01 rn 05/25 08:36 Order name: IV Saline Lock - Large Bore; Complete Time: 08:44 rn 05/25 08:36 Order name: Labs collected and sent; Complete Time: 08:44 05/25 08:36 Order name: O2 Per Protocol; Complete Time: 08:44 rn 05/25 08:36 Order name: O2 Sat Monitoring; Complete Time: 08:44 rn 05/25 08:36 Order name: Urine Dipstick-Ancillary (obtain specimen); Complete Time: 09:01 rn 05/25 08:36 Order name: CT Abd/Pelvis - Without Cont; Complete Time: 09:57 rn Administered Medications: 09:26 Drug: NS 0.9% 500 ml Route: IV; Rate: bolus; Site: right forearm; ph 10:28 Follow up: Response: No adverse reaction; IV Status: Completed infusion ph 09:50 Drug: NS 0.9% 500 ml Route: IV; Rate: bolus; Site: right forearm; ph 10:30 Follow up: Response: No adverse reaction; IV Status: Completed infusion ph 09:50 Drug: Rocephin - (cefTRIAXone) 1 grams Route: IVPB; Infused Over: 30 mins; Site: right ph forearm; 10:28 Follow up: Response: No adverse reaction; IV Status: Completed infusion ph 10:27 Drug: NS 0.9% 1000 ml Route: IV; Rate: 125 ml/hr; Site: right forearm; ph 11:30 Follow up: Response: Adverse reaction, Physician notified; IV Status: Infusion ph continued upon admission 10:28 Drug: Zithromax 500 mg Route: IVPB; Infused Over: 1 hrs; Site: right forearm; ph 11:30 Follow up: Response: No adverse reaction; IV Status: Completed infusion ph Disposition: 05/25/18 10:03 Hospitalization ordered by Mike Damian for Inpatient Admission. Preliminary diagnosis are Hyperosmolality and hypernatremia, Dehydration, Fecal impaction, Right lower lobe pneumonia. - Bed requested for Telemetry/MedSurg (Inpatient). - Status is Inpatient Admission. ph - Condition is Stable. - Problem is new. - Symptoms have improved. UTI on Admission? No Signatures: Dispatcher [employer] [facility] Salina Seay RN RN dw Valeriy Francisco MD MD rn Hall, Patricia, RN RN ph Corrections: (The following items were deleted from the chart) 12: 10:03 Hospitalization Ordered by Mike Damian MD for Inpatient Admission. Preliminary dw diagnosis is Hyperosmolality and hypernatremia; Dehydration; Fecal impaction; Right lower lobe pneumonia. Bed requested for Telemetry/MedSurg (Inpatient). Status is Inpatient Admission. Condition is Stable. Problem is new. Symptoms have improved. UTI on Admission? No. rn 13:20 12:21 05/25/2018 10:03 Hospitalization Ordered by Mike Damian MD for Inpatient ph Admission. Preliminary diagnosis is Hyperosmolality and hypernatremia; Dehydration; Fecal impaction; Right lower lobe pneumonia. Bed requested for Telemetry/MedSurg (Inpatient). Status is Inpatient Admission. Condition is Stable. Problem is new. Symptoms have improved. UTI on Admission? No. dw
[2018-05-25] MEDS ORDERED: NA CHLORIDE 0.9% 1,000 ML IV SCH ×2 (15:00→19:00)
--- NOTE | 2018-05-25 17:48 | P.HP ---
Certification for Inpatient Patient admitted to: Inpatient With expected LOS: >2 Midnights Practitioner: I am a practitioner with admitting privileges, knowledge of patient current condition, hospital course, and medical plan of care. Services: Services provided to patient in accordance with Admission requirements found in Title 42 Section 412.3 of the Code of Federal Regulations Patient History Date of Service: 05/25/18 Reason for admission: Shortness of breath History of Present Illness: This is a 70-year-old male resident from [facility] admitted for shortness of breath. Caregiver was at bedside, though he did not know was given too much. From chart review and caregiver, patient has not been feeling well for the past week, having shortness of breath and fever for the past 1 week , with a T-max of 103. Patient was brought to the ER, in the ER he was found to have a left lower lobe pneumonia on chest x-ray, sodium was 168 and he was febrile. He received 1 L bolus in the ER along with IV Rocephin and IV Zithromax. At baseline, patient has history of Parkinson's talk too much as per caregiver and family friend that was at bedside. Unable to get other history as patient was not talking/responsive. Per caregiver and family friend, son is medical [id number], but he is currently in [place]. He states that patient is also DNR, though no at a possible DNR paper work available at this time. Allergies Penicillins Allergy (Verified 02/06/18 16:11) Itching/Hives/Rash Home Medications: Carbidopa/Levodopa [Carbidopa-Levo 25-100 mg Odt] 100 mg PO TID 08/24/17 Cetirizine HCl [Zyrtec] 10 mg PO DAILY 08/24/17 Memantine HCl 10 mg PO BID 08/24/17 Metoprolol Tartrate [Lopressor*] 25 mg PO BID 08/24/17 Omeprazole 20 mg PO BID 08/24/17 Acetaminophen [Tylenol Extra Strength] 500 mg PO PRN PRN 02/06/18 Cranberry Fruit Extract/Vit C [Azo Cranberry Softgel] 1 each PO TID 02/06/18 Finasteride 5 mg PO DAILY 02/06/18 Guaifenesin [Mucinex] 600 mg PO DAILY PRN 02/06/18 Lactose-Reduced Food [Ensure Enlive] 237 ml PO TID 02/06/18 Melatonin 3 mg PO BEDTIME 02/06/18 Methylcellulose [Citrucel] 500 mg PO DAILY 02/06/18 Pimavanserin Tartrate [Nuplazid] 17 mg PO BID 02/06/18 Sennosides/Docusate Sodium [Senna-S Tablet] 1 each PO PRN PRN 02/06/18 Tramadol HCl [Ultram] 50 mg PO PRN PRN 02/06/18 Trazodone [Desyrel] 100 mg PO BEDTIME 02/06/18 Ziprasidone HCl [Geodon*] 40 mg PO DAILY 02/06/18 Enoxaparin Sodium [Lovenox] 30 mg SQ DAILY 16 Days #16 syringe 02/13/18 - Past Medical/Surgical History Diabetic: No -: Prostate Cancer -: GERD -: Vasectomy -: Colon Resectioning -: Gallbladder Removed. - Family History Mother -: Other (see notes) Notes: Depression Father Notes: Alzheimer's - Social History Alcohol use: No CD- Drugs: No Caffeine use: Yes Review of Systems is unable to be obtained Physical Examination - Vital Signs Temperature: 98.9 F Blood Pressure: 102/69 Pulse: 88 Respirations: 16 Pulse Ox (%): 94 - Physical Exam General: In no apparent distress, Confused, Unresponsive (Unsure if this is at baseline) HEENT: Other (dry mucous membranes) Neck: JVD not distended Respiratory: Diminished, Other Cardiovascular: No edema, Normal pulses, Irregular heart rate/rhythm ( Tachycardic) Gastrointestinal: Normal bowel sounds Musculoskeletal: No clubbing, No swelling Neurological: Dementia - Studies Laboratory Data (last 24 hrs) 05/25/18 08:45: WBC 16.6 H, Hgb 13.8, Hct 43.9, Plt Count 280 05/25/18 08:45: Sodium 168 H*, Potassium 3.3 L, BUN 57 H, Creatinine 1.83 H, Glucose 154 H, Total Bilirubin 0.6, AST 26, ALT 18, Alkaline Phosphatase 90, Lipase 107 Microbiology Data (last 24 hrs): 05/25/18 08:47 Nasopharnyx Influenza Type A Antigen Screen - Final 05/25/18 08:47 Nasopharnyx Influenza Type B Antigen Screen - Final Assessment and Plan - Plan This is a 70-year-old male with: Sepsis Meets sepsis criteria with: Temperature above 100.4, heart rate greater than 90, WBC count greater than 12,000 and respiratory rate greater than 20 Likely source, pneumonia IV antibiotics, IV fluids Repeat lactic acid in normal level, responded well to IV fluids. Left lower lobe pneumonia, healthcare associated Start IV antibiotics: vancomycin and Zosyn Hypernatremia Continue IV fluids, monitor via a.m. labs. Toxic metabolic encephalopathy. Unsure of patient's baseline, the caregiver states that he does not talk much. Dysphagia We will get speech therapy to evaluate though unsure how well that will work since patient is not really responding. Parkinson's disease. Restart home medications DVT prophylaxis: Lovenox GI prophylaxis: Not needed Diet: NPO, pending full speech evaluation Disposition: Admit to floor, with tele. Monitor via a.m. labs - Advance Directives Does patient have a Living Will: Yes Does patient have a Durable POA for Healthcare: Yes Time Spent Managing Pts Care (In Minutes): 55
--- NOTE | 2018-05-25 18:07 | EKG ---
Test Date: 2018-05-25 Test Time: 09:05:49 [employer] Director: SUNG MEASUREMENT RESULTS: Intervals: Rate: 111 PA: 112 QRSD: 80 QT: 326 QTc: 443 [place]: P: 40 PA: 112 QRS: 18 T: -7 INTERPRETIVE STATEMENTS: Sinus tachycardia T wave abnormality, consider anterior ischemia Abnormal ECG Compared to ECG 02/08/2018 13:51:46 T-wave abnormality now present Possible ischemia now present ST (T wave) deviation no longer present Electronically Signed On 05-25-18 18:05:01 IMPROVEMENT LEADER by Ravinder Rosas
--- OUTSIDE RECORDS SUMMARY | 2018-05-25 18:16 | XMS REPORT ---
:1940 [facility] [address] [place] [address] Care Team Providers Name Role Phone DR [...] CPK (test code=32A) 995 IU/L 39-308 CARDIAC [id number] 04:24:00 Test Item Value Reference Range Comments TROPONIN I (test code=A84) 0.058 ng/mL 0.000-0.045 CKMB (test code=A49) 29.7 ng/mL <=3.6 CPK (test code=32A) 1058 IU/L 39-308 BASIC METABOLIC [id number] 03:53:00 Test Item Value Reference Range Comments [...] (test code=RBCMOR) NORMAL CT CERVICAL SPINE W/O [id number] 20:41:24Location:: [id number]: Neck painComparison: NoneTechnique: Multiplanar axial, sagittal, and [...] neural foramen encroachment whichfurther evaluation is recommended.CARDIAC [id number] 20:40:00 Test Item Value Reference Range Comments TROPONIN I (test code=A84) 0.081 ng/mL 0.000-0.045 CKMB (test code=A49) 44.5 ng/mL <=3.6 CPK (test code=32A) 1078 IU/L 39-308 COMPREHENSIVE METABOLIC [id number] 20:35:00 Test Item Value Reference Range Comments [...] IU/L <=78 CT ABDOMEN AND PELVIS W/O [id number] 20:31:42LOCATION CODE: A1.HISTORY : Low back and [...] aorta. 5. Enlarged prostate.6. Constipation..CT CHEST W/O [id number] 20:25:41LOCATION CODE: A1.HISTORY : chest painCOMPARISON: NoneTECHNIQUE: [...] atheroscleroticcalcification of a nondilated aorta.CT HEAD W/O [id number] 20:17:03LOCATION CODE: A1.HISTORY: HeadacheCOMPARISON: NoneTECHNIQUE: Serial [...]
[2018-05-25 19:29] LABS: Albumin 2.3 g/dL (3.4-5.0); Bilirubin Total 0.5 mg/dL (0.2-1.0); Potassium 3.7 mmol/L (3.5-5.1); Protein, Total 6.9 g/dL (6.4-8.2)
[2018-05-25] MEDS: D5W 1,000 ML IV SCH (21:10)
[2018-05-25] MEDS ORDERED: VANCOMYCIN 1 GM/250 ML BAG IV SCH (23:00)
[2018-05-25] MEDS ORDERED: PIPER/TAZO/NS 3.375gm 0 GM/0 ML BAG ONE (23:33)
[2018-05-25] MEDS ORDERED: PIPER/TAZO/NS 3.375gm 6.750 GM/200 ML BAG ONE (23:37)
[2018-05-25] MEDS: PIPER/TAZO/NS 3.375gm 3.375 GM/100 ML BAG IVPB SCH (23:39)
[2018-05-26 05:16] LABS: Absolute Lymphocytes (CBC) 1.7 K/uL (0.7-4.9); Absolute Monocytes 0.7 K/uL (0.1-1.3); Absolute Neutrophil 9.4 K/uL (1.8-8.0); Basophils % 0.2 % (0-1.3); Eosinophils % 0.2 % (0-4.4); Hematocrit 35.5 % (39.6-49.0); Lymphocytes % 14.1 % (15.3-44.8); MPV 9.8 fL (7.6-11.3); Monocytes % 6.2 % (3.3-12.3); RBC Red Blood Cell Count 4.11 M/uL (4.33-5.43)
[2018-05-26] MEDS: PIPER/TAZO/NS 3.375gm 3.375 GM/100 ML BAG IVPB SCH ×3 (05:36→17:02)
[2018-05-26 05:39] LABS: Albumin 2.2 g/dL (3.4-5.0); Bilirubin Total 0.5 mg/dL (0.2-1.0); Potassium 3.5 mmol/L (3.5-5.1); Protein, Total 6.6 g/dL (6.4-8.2)
[2018-05-26] MEDS: ENOXAPARIN 30 MG/0.3 ML SQ SCH (08:53)
[2018-05-26] MEDS ORDERED: VANCOMYCIN 500 MG in NA CHLORIDE 0.9% 100 ML IVPB SCH (09:00)
[2018-05-26] MEDS ORDERED: VANCOMYCIN 1 GM in NA CHLORIDE 0.9% 250 ML IVPB SCH (09:00)
[2018-05-26] MEDS ORDERED: VANCOMYCIN 1.5 GM in NA CHLORIDE 0.9% 500 ML IVPB SCH (09:00)
[2018-05-26] MEDS: D5W 1,000 ML IV SCH ×2 (10:27→22:40)
[2018-05-26 12:40] LABS: Potassium 3.5 mmol/L (3.5-5.1)
[2018-05-26] MEDS ORDERED: ACETAMINOPHEN 325 MG/SUPP PR ONE (17:51)
--- NOTE | 2018-05-26 18:23 | P.PN ---
Subjective Date of Service: 05/26/18 Chief Complaint: Shortness of breath Subjective: No new changes Patient seen and examined at bedside. Caregiver at bedside. Chart reviewed and case discussed with nursing staff. Patient is a resident of the [facility]. The nurses speak to ROAD INSPECTOR over there that scare patient and per her, the patient's baseline with that so yesterday patient was still communicating, he was not completely bed bound. Since patient has been here, he is not communicating, responsive only to pain. Though he does open his eyes sometimes with the caregiver talks to patient. Review of Systems 10-point ROS is otherwise unremarkable Physical Examination - Vital Signs Temperature: 100.2 F Blood Pressure: 102/72 Pulse: 78 Respirations: 24 Pulse Ox (%): 94 - Physical Exam General: Unresponsive (Responsive to painful stimuli only) HEENT: Other (Dried mucus membrane) Neck: JVD not distended Respiratory: Normal air movement Gastrointestinal: Normal bowel sounds, No tenderness Assessment And Plan - Plan This is a 70-year-old male with: Sepsis Meets sepsis criteria with: Temperature above 100.4, heart rate greater than 90, WBC count greater than 12,000 and respiratory rate greater than 20 Likely source, pneumonia IV antibiotics, IV fluids Left lower lobe pneumonia, healthcare associated Continue IV antibiotics: vancomycin and Zosyn Hypernatremia Currently on D5 and doubly with water, running at 75 cc. Repeat sodium level still at 170. Continue IV fluids, monitor via a.m. labs. Toxic metabolic encephalopathy. Patient's baseline, from the group home nurse: Patient was still able to communicate, though not as much. He was not completely bed-bound Dysphagia We will get speech therapy to evaluate though unsure how well that will work since patient is not really responding. Parkinson's disease. Restart home medications when patient able to tolerate p.o. DVT prophylaxis: Lovenox GI prophylaxis: Not needed Diet: NPO, pending full speech evaluation Disposition: Monitor with lower, pending symptomatic improvement. Guarded prognosis
[2018-05-26 20:42] LABS: Potassium 4.9 mmol/L (3.5-5.1)
[2018-05-26] MEDS ORDERED: ALBUMIN HUMAN 25% 100 ML IV ONE (21:22)
[2018-05-26] MEDS ORDERED: ACETAMINOPHEN 650MG/RECT SUPP PR ONE (21:23)
[2018-05-26] MEDS ORDERED: HYDROCORTISONE SUC 100 MG INJ IV ONE (21:28)
[2018-05-27] MEDS: D5W 1,000 ML IV SCH ×2 (01:37→12:00)
[2018-05-27] MEDS: PIPER/TAZO/NS 3.375gm 3.375 GM/100 ML BAG IVPB SCH ×3 (01:40→16:46)
[2018-05-27] MEDS: ENOXAPARIN 30 MG/0.3 ML SQ SCH (09:02)
[2018-05-27] MEDS: VANCOMYCIN/NS 1 gm 1 GM/250 ML BAG IV SCH (10:29)
--- NOTE | 2018-05-27 12:03 | P.PN ---
Subjective Date of Service: 05/27/18 Chief Complaint: Shortness of breath Subjective: No new changes Patient seen and examined at bedside. Caregiver at bedside. Chart reviewed and case discussed with nursing staff. Patient is a resident of the [facility]. Not communicating, responsive only to pain. Though he does open his eyes sometimes with the caregiver talks to patient. Review of Systems 10-point ROS is otherwise unremarkable Physical Examination - Vital Signs Temperature: 98.5 F Blood Pressure: 138/78 Pulse: 64 Respirations: 24 Pulse Ox (%): 94 - Physical Exam General: Unresponsive HEENT: Atraumatic, PERRLA, EOMI Neck: Supple, JVD not distended Respiratory: Clear to auscultation bilaterally, Normal air movement Cardiovascular: Regular rate/rhythm, Normal S1 S2 Gastrointestinal: Normal bowel sounds, No tenderness Musculoskeletal: No tenderness Integumentary: No rashes Neurological: Normal speech, Normal tone, Normal affect Lymphatics: No axilla or inguinal lymphadenopathy - Studies Microbiology Data (last 24 hrs): 05/25/18 08:50 Clean Catch Urine [place] Count - Final 05/25/18 08:50 Clean Catch Urine - Final Assessment And Plan - Plan This is a 70-year-old male with: Sepsis improving Meets sepsis criteria with: Temperature above 100.4, heart rate greater than 90, WBC count greater than 12,000 and respiratory rate greater than 20 Likely source, pneumonia IV antibiotics, IV fluids Left lower lobe pneumonia, healthcare associated Continue IV antibiotics: vancomycin and Zosyn Hypernatremia Currently on D5 and doubly with water, running at 75 cc. Repeat sodium level still at 170. Continue IV fluids, monitor via a.m. labs. Toxic metabolic encephalopathy. Patient's baseline, from the residential nurse: Patient was still able to communicate, though not as much. He was not completely bed-bound Dysphagia We will get speech therapy to evaluate though unsure how well that will work since patient is not really responding. Keep NPO Parkinson's disease. Restart home medications when patient able to tolerate p.o. DVT prophylaxis: Lovenox GI prophylaxis: Not needed Diet: NPO, pending full speech evaluation Disposition: Monitor with lower, pending symptomatic improvement. Guarded prognosis. No family at bedside, would like to discuss further care in regards to feeding etc with family. Patient's son is medical [id number], currently on vacation. Will attempt to contact tomorrow - Code Status/Comfort Care Code Status Assessed: Yes Code Status: Do Not Resuscitate
[2018-05-28] MEDS: PIPER/TAZO/NS 3.375gm 3.375 GM/100 ML BAG IVPB SCH ×2 (00:24→09:29)
[2018-05-28] MEDS: D5W 1,000 ML IV SCH ×2 (01:20→09:37)
[2018-05-28 08:20] LABS: Absolute Lymphocytes (CBC) 1.6 K/uL (0.7-4.9); Absolute Monocytes 0.3 K/uL (0.1-1.3); Absolute Neutrophil 7.3 K/uL (1.8-8.0); Basophils % 0.1 % (0-1.3); Eosinophils % 0.5 % (0-4.4); Lymphocytes % 17.4 % (15.3-44.8); MPV 10.4 fL (7.6-11.3); Monocytes % 3.5 % (3.3-12.3); RBC Red Blood Cell Count 4.29 M/uL (4.33-5.43)
[2018-05-28 08:33] LABS: Albumin 2.1 g/dL (3.4-5.0); Bilirubin Total 0.5 mg/dL (0.2-1.0); Potassium 3.6 mmol/L (3.5-5.1); Protein, Total 6.5 g/dL (6.4-8.2)
[2018-05-28 08:54] VITALS: O2SAT 96
[2018-05-28] MEDS: VANCOMYCIN/NS 1 gm 1 GM/250 ML BAG IV SCH (09:00)
[2018-05-28 09:23] VITALS: BP 150/94; TEMP 99.4
[2018-05-28] MEDS: ENOXAPARIN 30 MG/0.3 ML SQ SCH (09:38)
[2018-05-28] MEDS ORDERED: VANCOMYCIN 1.25 GM in NA CHLORIDE 0.9% 250 ML IVPB SCH (10:30)
--- NOTE | 2018-05-28 12:03 | RAD REPORT ---
EXAM DESCRIPTION: RAD - Barium Swallow Modified - 05/28/2018 11:32 am CLINICAL HISTORY: Multiple coughing episodes during swallowing COMPARISON: None. TECHNIQUE: The patient was given liquid, semi-solid and solid forms of barium. Lateral view fluorosc opic imaging was performed in conjunction with speech pathology service. FINDINGS: There were 18 cine loop acquisitions obtained. Fluoro time was 2 minutes 27 seconds. Aspiration occurred with thin liquid barium and nectar forms of barium. There was a delayed cough ref daniella. The patient had additional laryngeal penetration episodes. Contrast pooled in the valleculae and pyriform sinuses. IMPRESSION: Modified barium swallow as detailed above and further detailed on speech pathology repor jennifer
--- NOTE | 2018-05-28 15:05 | P.DS ---
Admission Date: 05/25/18 Discharge Date: 05/28/18 Disposition: HOSPICE-MEDICAL FACILITY Discharge Condition: SERIOUS Reason for Admission: Shortness of breath Brief History of Present Illness: This is a 70-year-old male resident from [facility] admitted for shortness of breath. Caregiver was at bedside, though he did not know was given too much. From chart review and caregiver, patient has not been feeling well for the past week, having shortness of breath and fever for the past 1 week , with a T-max of 103. Patient was brought to the ER, in the ER he was found to have a left lower lobe pneumonia on chest x-ray, sodium was 168 and he was febrile. He received 1 L bolus in the ER along with IV Rocephin and IV Zithromax. At baseline, patient has history of Parkinson's does not talk too much as per caregiver and family friend that was at bedside. Unable to get other history as patient was not talking/responsive. Per caregiver and family friend, son is medical [id number], but he is currently in [place]. He states that patient is also DNR, though no at a possible DNR paper work available at this time. Hospital Course: Sepsis Met sepsis criteria with: Temperature above 100.4, heart rate greater than 90 , WBC count greater than 12,000 and respiratory rate greater than 20 He was started on IV fluids and IV antibiotics. Left lower lobe pneumonia, healthcare associated he was started on IV antibiotics: vancomycin and Zosyn; Hypernatremia He was started on IVF, NS then switched to D5W. Unfortunately, his sodium levels did not respond to the interventions. Toxic metabolic encephalopathy. Patient's baseline, from the long-term nurse: Patient was still able to communicate, though not as much. He was not completely bed-bound Dysphagia Patient was not really responsive and his mentation worsened. Feeding options were discussed with family and they did not want PEG tube or any feeding tube placed. Family chose hospice care for the patient. He was discharged from the inpatient service to inpatient hospice. Parkinson's disease, end-stage We were not really able to start PO meds as patient was not responsive. Vital Signs/Physical Exam: Temp Pulse Resp BP Pulse Ox 99.4 F 68 20 150/94 H 96 05/28/18 08:00 05/28/18 08:00 05/28/18 08:00 05/28/18 08:00 05/28/18 08:00 General: Unresponsive Laboratory Data at Discharge: WBC 9.3 K/uL (4.3-10.9) D 05/28/18 07:53 Hgb 11.7 g/dL (13.6-17.9) L 05/28/18 07:53 Hct 37.0 % (39.6-49.0) L 05/28/18 07:53 Plt Count 196 K/uL (152-406) 05/28/18 07:53 Sodium 167 mmol/L (136-145) H* 05/28/18 07:53 Potassium 3.6 mmol/L (3.5-5.1) 05/28/18 07:53 BUN 29 mg/dL (7-18) H 05/28/18 07:53 Creatinine 1.04 mg/dL (0.55-1.3) 05/28/18 07:53 Glucose 140 mg/dL (74-106) H 05/28/18 07:53 Total Bilirubin 0.5 mg/dL (0.2-1.0) 05/28/18 07:53 AST 23 U/L (15-37) 05/28/18 07:53 ALT 16 U/L (12-78) 05/28/18 07:53 Alkaline Phosphatase 60 U/L (45-117) 05/28/18 07:53 Lipase 107 U/L (73-393) 05/25/18 08:45 Home Medications: Carbidopa/Levodopa [Carbidopa-Levo 25-100 mg Odt] 100 mg PO TID 08/24/17 Cetirizine HCl [Zyrtec] 10 mg PO DAILY 08/24/17 Memantine HCl 10 mg PO BID 08/24/17 Metoprolol Tartrate [Lopressor*] 25 mg PO BID 08/24/17 Omeprazole 20 mg PO BID 08/24/17 Acetaminophen [Tylenol Extra Strength] 1,000 mg PO Q4H PRN 02/06/18 Cranberry Fruit Extract/Vit C [Azo Cranberry Softgel] 2 each PO TID 02/06/18 Finasteride 5 mg PO DAILY 02/06/18 Guaifenesin [Mucinex] 600 mg PO DAILY PRN 02/06/18 Melatonin 3 mg PO BEDTIME 02/06/18 Pimavanserin Tartrate [Nuplazid] 17 mg PO BID 02/06/18 Sennosides/Docusate Sodium [Senna-S Tablet] 1 each PO PRN PRN 02/06/18 Tramadol HCl [Ultram] 50 mg PO BID PRN 02/06/18 Trazodone [Desyrel] 50 mg PO BEDTIME 02/06/18 Ziprasidone HCl [Geodon*] 20 mg PO M,W,F 02/06/18 Polyethylene Glycol 3350 [Miralax] 17 gm PO DAILY PRN 05/25/18 Time spent managing pt's care (in minutes): 55
== END 2018-05-28 10:45 | disposition hospice, inpatient (51) | DRG 871 ==
LOC: ER 08:32 → ERHOLD 10:32 → 4TH 13:00
PROVIDERS: ADMIT Family Medicine; ATTEND Family Medicine
DX: A41.9 Sepsis, unspecified organism (principal); J18.9 Pneumonia, unspecified organism; G93.41 Metabolic encephalopathy; E87.0 Hyperosmolality and hypernatremia; Z51.5 Encounter for palliative care; R65.20 Severe sepsis without septic shock; Z66 Do not resuscitate; G20 Parkinson's disease; Y95 Nosocomial condition; R13.10 Dysphagia, unspecified; Z88.0 Allergy status to penicillin; Z85.46 Personal history of malignant neoplasm of prostate
CPT/HCPCS: 36415; 51702; 71045; 74176; 74230; 80048; 80053; 80076; 80202; 81003; 81015; 82550; 83605; 83690; 84145; 84295; 85025; 87040; 87070; 87086; 87088; 87205; 87804; 92526; 92610; 92611; 93005; 94760; 96365; 96367; 99285; J0456; J0696; J1650; J1720; J2543; J3370; J7030; P9047

== ENCOUNTER 2018-05-28 11:22 | Inpatient (IN) | payer OTHER, BC ==
--- OUTSIDE RECORDS SUMMARY | 2018-05-28 11:25 | XMS REPORT ---
:1940 [facility] Address [address] [place] [address] Care Team Providers Name Role Phone DR [...] CPK (test code=32A) 995 IU/L 39-308 CARDIAC [id number] 04:24:00 Test Item Value Reference Range Comments TROPONIN I (test code=A84) 0.058 ng/mL 0.000-0.045 CKMB (test code=A49) 29.7 ng/mL <=3.6 CPK (test code=32A) 1058 IU/L 39-308 BASIC METABOLIC [id number] 03:53:00 Test Item Value Reference Range Comments [...] (test code=RBCMOR) NORMAL CT CERVICAL SPINE W/O [id number] 20:41:24Location:: [id number]: Neck painComparison: NoneTechnique: Multiplanar axial, sagittal, and [...] neural foramen encroachment whichfurther evaluation is recommended.CARDIAC [id number] 20:40:00 Test Item Value Reference Range Comments TROPONIN I (test code=A84) 0.081 ng/mL 0.000-0.045 CKMB (test code=A49) 44.5 ng/mL <=3.6 CPK (test code=32A) 1078 IU/L 39-308 COMPREHENSIVE METABOLIC [id number] 20:35:00 Test Item Value Reference Range Comments [...] IU/L <=78 CT ABDOMEN AND PELVIS W/O [id number] 20:31:42LOCATION CODE: A1.HISTORY : Low back and [...] aorta. 5. Enlarged prostate.6. Constipation..CT CHEST W/O [id number] 20:25:41LOCATION CODE: A1.HISTORY : chest painCOMPARISON: NoneTECHNIQUE: [...] atheroscleroticcalcification of a nondilated aorta.CT HEAD W/O [id number] 20:17:03LOCATION CODE: A1.HISTORY: HeadacheCOMPARISON: NoneTECHNIQUE: Serial [...]
[2018-05-28] MEDS ORDERED: SCOPOLAMINE HYDROBROMIDE PATCH TD ONE (11:58)
[2018-05-28] MEDS ORDERED: HALOPERIDOL LACT 5 MG/ML INJ IV PRN (11:58)
[2018-05-28] MEDS ORDERED: ONDANSETRON 4 MG/2 ML VIAL IV PRN (11:58)
[2018-05-28] MEDS ORDERED: LORazepam 2 MG/ML VIAL IV PRN (11:59)
[2018-05-28] MEDS: MORPHINE 2 MG/ML SYR IV SCH ×3 (12:00→20:00)
[2018-05-28 15:13] VITALS: BMI 22.4
[2018-05-28] MEDS: ATROPINE 1% OPTH DROPS 5ML OPTH SCH ×3 (15:30→20:37)
[2018-05-28] MEDS: ATROPINE 1% OPTH DROPS 5ML SL PRN ×2 (15:33→20:36)
[2018-05-29] MEDS: MORPHINE 2 MG/ML SYR IV SCH ×2 (04:30)
[2018-05-29] MEDS: MORPHINE 4 MG/ML SYR IV SCH ×4 (08:18→20:16)
[2018-05-29] MEDS: ATROPINE 1% OPTH DROPS 5ML OPTH SCH ×4 (08:19→20:17)
[2018-05-30] MEDS: ACETAMINOPHEN 650MG/RECT SUPP PR PRN (00:28)
[2018-05-30] MEDS: MORPHINE 4 MG/ML SYR IV SCH ×6 (00:28→20:38)
[2018-05-30] MEDS: ATROPINE 1% OPTH DROPS 5ML OPTH SCH ×4 (09:26→20:39)
[2018-05-31] MEDS: MORPHINE 4 MG/ML SYR IV SCH ×6 (01:50→21:16)
[2018-05-31] MEDS: ACETAMINOPHEN 650MG/RECT SUPP PR PRN (05:02)
[2018-05-31] MEDS: ATROPINE 1% OPTH DROPS 5ML OPTH SCH ×4 (08:58→21:17)
[2018-05-31] MEDS: SCOPOLAMINE HYDROBROMIDE PATCH TD SCH (09:09)
[2018-06-01] MEDS: MORPHINE 4 MG/ML SYR IV SCH ×7 (01:11→23:51)
[2018-06-01] MEDS: ATROPINE 1% OPTH DROPS 5ML OPTH SCH ×4 (08:18→20:02)
[2018-06-02] MEDS: MORPHINE 4 MG/ML SYR IV SCH ×5 (03:56→20:03)
[2018-06-02] MEDS: ATROPINE 1% OPTH DROPS 5ML OPTH SCH ×4 (08:24→20:04)
[2018-06-03] MEDS: MORPHINE 4 MG/ML SYR IV SCH ×6 (00:04→20:35)
[2018-06-03] MEDS: SCOPOLAMINE HYDROBROMIDE PATCH TD SCH (09:04)
[2018-06-03] MEDS: ATROPINE 1% OPTH DROPS 5ML OPTH SCH ×4 (09:04→20:35)
[2018-06-04] MEDS: MORPHINE 4 MG/ML SYR IV SCH ×3 (00:26→08:27)
[2018-06-04 03:48] VITALS: O2SAT 93
[2018-06-04] MEDS: ATROPINE 1% OPTH DROPS 5ML OPTH SCH ×2 (08:29→13:00)
[2018-06-04 08:35] VITALS: BP 70/41; TEMP 98.9
[2018-06-04] MEDS ORDERED: MORPHINE 4 MG/ML SYR IV SCH ×2 (09:00→12:00)
== END 2018-06-04 14:56 | disposition expired | DRG 951 ==
LOC: 4TH 11:22
PROVIDERS: ADMIT Family Medicine; ATTEND Family Medicine
DX: Z51.5 Encounter for palliative care (principal); G20 Parkinson's disease; Z88.0 Allergy status to penicillin
CPT/HCPCS: J2270